=== PATIENT | male | born 1945 | race Caucasian/White ===

== ENCOUNTER 2017-10-11 12:52 | Emergency (ER) | payer MEDICARE ==
--- OUTSIDE RECORDS SUMMARY | 2017-10-11 13:01 | XMS REPORT ---
:1945 External Reference #:[id number] Author Organization [facility] Address [address] [place] [address] Phone [phone] Care Team Providers Name Role Phone William Jason III, MD Primary Care Physician Unavailable Payers Type Date Identification Numbers Payment Provider Subscriber Commercial Policy Number: [id number] [employer] Chago Perez PayID: [id number] [address] [place] [address] Problems Date Description Provider Status Onset: 01/06/2011 Type 2 diabetes mellitus William Jason M.D. Active Onset: 01/06/2011 Benign essential hypertension William Jason M.D. Active Onset: 02/23/2011 Sleep apnea William Jason M.D. Active Onset: 06/24/2011 Mixed hyperlipidemia William Jason M.D. Active Onset: 02/19/2015 Essential hypertension William Jason M.D. Active Onset: 02/19/2015 Sleep apnea William Jason M.D. Active Onset: 06/02/2016 Morbid obesity Lisa Bose MD Active Onset: 06/02/2016 Disorder of lung Lisa Bose MD Active Family History Date Family Member(s) Problem(s) Comments Father DM Mother at age 97 Siblings 6 3 Sisters 3 Brothers - one brother from Alzheimer's Social History Type Date Description Comments Marital Status Lives With Family Occupation Retired Cigarette Use Former Cigarette Smoker quit age 24; max 2-2.5 ppd x 17 years Cigarette Use Quit in 1972 ETOH Use Not currently Smoking Patient is a former smoker Recreational Drug Use Denies Drug Use Daily Caffeine Consumes on average 2 cups of regular coffee per day Exercise Type/Frequency Does not exercise Allergies, Adverse Reactions, Alerts Date Description Reaction Status Severity Comments 04/25/2007 Vasotec active 02/23/2011 Latex active rash 06/02/2016 Invokana active Medications Medication Date Status Form Strength Qnty SIG Indications Ordering Provider Aspirin 09/11 Active Tablets 81mg 90tab [address] allison every day Dayan Bone M.D.,FACP Bydureon Bcise 09/08 Active Auij 2mg/0.85M 3.400 1 injection William Castillo L ml weekly Ehsan Jason Relion 10/15 Active Strips 50uni test weekly William Castillo Confirm/Micro Test ts or as Ezequiel Jason directed Ehsan Metformin HCL 10/23 Active Tablets 500mg 360ta 2 by mouth William Castillo bs twice a day Ehsan aJson Norvasc 04/25 Active Tablets 10mg 90tab 1 by mouth William Castillo s every day Ehsan Jason Multi-Day Vitamins 01/19 Active Tablets 1 PO qd William Castillo Ehsan Jason Cozaar Active Tablets 100mg 90tab 1 by mouth William Castillo / s every day Ehsan Jason Apruvia 06/05 Hx Tablets 100mg 90tab 1 by mouth William Castillo s every day Sunny Jason M.D. 09/27 Januvia 06/01 Hx Tablets 1 by mouth every day - 06/05 Levaquin 04/02 Hx Tablets 750mg 10tab 1 tablet by William Castillo /2015 s mouth every Casie, - day x 10 M.DMike Invokana 02/24 Hx Tablets 100mg 90tab 1 by mouth E11.9 William Castillo s every day Sunny Jason M.D. 04/08 Simvastatin 08/19 Hx Tablets 5mg 30tab Not Taking E78.2 William Castillo /2015 s Sunny Jason M.D. 05/27 Ra Pen [place] 31G 08/04 Hx 5mm 100un use with E11.9 William Castillo X its Victoza pen Casie, - M.D. 08/24 Tamiflu 06/20 Hx Capsules 75mg 10cap twice a day J10.89 [place] s Ezekiel - , M.D. 08/19 Azithromycin Hx Tablets 250mg 6tabs take 2 tab J20.9 Renetta /2015 on day 1 [place], - then 1 tab M.D. 08/19 daily x days Victoza 07/13 Hx Solution 18mg/3ML 9ml inject 0.6 E11.9 William Talley. Pen-Injec milligram Casie, - t subcutaneou M.D. 02/24 sly daily /2015 for the first week, then increase to 1.2mg daily (patient states he takes 0.9) Ra Pen [place] 07/13 Hx Misc 31G X 5 100un use with E11.9 William Castillo /2014 mm its Victoza pen Casie, - M.D. 08/04 Ketoconazole 07/02 Hx Cream 2% 15gm apply to 607.81 [place] /2015 affected Aman, [employer] - area twice 07/13 daily /2014 Androderm 01/24 Hx Patches 4mg/24HR 30uni apply one 257.2 William E. 24HR ts patch daily Casie, - in the M.D. 07/02 evening. rotate patch locations Atorvastatin 01/08 Hx Tablets 20mg 90tab take 1 272.2 William E. Calcium /2013 s tablet at [place], - bedtime M.D. 10/15 Mometasone Furoate 07/07 Hx Cream 0.1% 45gm apply twice 709.9 William E. /2013 a day for Casie, - 2-3 weeks M.D. 01/24 Wrist Brace 05/12 Hx Misc 1unit left side; 719.44 William E. Ultra-Lite Carpal /2013 s use at [place], Tunnel/One Size - night and M.D. 07/13 prn /2014 Pravastatin Sodium 06/23 Hx Tablets 20mg 90tab 1 tablet by William Castillo s mouth once Casie, - daily at M.D. 10/08 bedtime Norvasc 04/25 Hx Tablets 5mg 180ta 1 PO bid William Mike Sunny Escobar M.D. 04/25 Norvasc Hx Tablets 5mg 90tab 1 po qd William E. / Sunny Shelton M.D. 04/25 Hydrochlorothiazid Hx Tablets 25mg 90tab Not Taking William E. e / Sunny Shelton M.D. 05/27 Glucosamine 1500 Hx Tablet 1 tablet po Unknown Complex W/Vitamin bid D - 07/02 Immunizations CPT Code Status Date Vaccine Lot # [id number] Given 08/25/2017 Pneumonia Vaccine [id number] 45612 Given 02/24/2017 Fluzone High Dose 87138 Given 02/25/2016 Influenza Virus Vaccine, Quadrivalent, Split [id number] Virus, [place] Use 45452 Given 02/19/2015 Influenza Virus Vaccine, Quadrivalent, Split, [id number] Preservative Free 51324 Given 07/13/2014 Tdap - Tetanus/Diptheria/Acellular Pertussis [id number] 52145 Given 07/13/2014 Pneumococcal Conjugate Vaccine 13 Valent For [id number] Intramuscular Use 07914 Given 01/08/2014 Influenza Virus Vaccine, Quadrivalent, Split, [id number] Preservative Free 40506 Given 05/06/2009 Influenza Virus Vaccine, Pandemic Formulation [id number] 73923 Given 05/06/2009 Administration Swine Flu Shot 80780 Given 11/22/2007 Pneumonia Vaccine 79140 Given 11/22/2007 Pneumonia Vaccine [id number] 85788 Given 06/19/2004 Td (History By Patient) Vital Signs Date Vital Result Comment 09/27/2017 Height 67.1 inches 5'7.10" Weight 286.38 lb Heart Rate 81 /min BP Systolic Sitting 138 mmHg 132/76 pt's machine BP Diastolic Sitting 86 mmHg 132/76 pt's machine O2 % BldC Oximetry 97 % BMI (Body Mass Index) 44.7 kg/m2 08/25/2017 Height 67.1 inches 5'7.10" Weight 293.00 lb Heart Rate 79 /min BP Systolic Sitting 150 mmHg BP Diastolic Sitting 92 mmHg O2 % BldC Oximetry 97 % BMI (Body Mass Index) 45.7 kg/m2 02/23/2017 Height 67 inches 5'7" Weight 285.00 lb Heart Rate 79 /min BP Systolic Sitting 128 mmHg BP Diastolic Sitting 74 mmHg Body Temperature 98.3 F O2 % BldC Oximetry 96 % BMI (Body Mass Index) 44.6 kg/m2 12/09/2016 Height 67 inches 5'7" Weight 274.00 lb w/ shoes Heart Rate 80 /min reg BP Systolic Sitting 124 mmHg Rue, lg cuff BP Diastolic Sitting 80 mmHg Rue, lg cuff Respiratory Rate 16 /min O2 % BldC Oximetry 95 % on Ra BMI (Body Mass Index) 42.9 kg/m2 08/25/2016 Height 67 inches 5'7" Weight 278.00 lb Heart Rate 74 /min BP Systolic 138 mmHg BP Diastolic 80 mmHg Body Temperature 97.9 F O2 % BldC Oximetry 97 % BMI (Body Mass Index) 43.5 kg/m2 06/02/2016 Height 67 inches 5'7" Weight 285.00 lb Heart Rate 81 /min BP Systolic Sitting 156 mmHg BP Diastolic Sitting 84 mmHg Respiratory Rate 16 /min O2 % BldC Oximetry 98 % BMI (Body Mass Index) 44.6 kg/m2 Neck Circumference in inches 20 05/27/2016 Weight 289.00 lb Heart Rate 84 /min BP Systolic Sitting 152 mmHg BP Diastolic Sitting 88 mmHg Respiratory Rate 14 /min Body Temperature 98.0 F O2 % BldC Oximetry 97 % 04/02/2016 Height 66.5 inches 5'6.50" Weight 283.00 lb Heart Rate 95 /min BP Systolic 130 mmHg BP Diastolic 90 mmHg Body Temperature 102.0 F O2 % BldC Oximetry 95 % BMI (Body Mass Index) 45.0 kg/m2 02/25/2016 Height 66.5 inches 5'6.50" Weight 291.38 lb Heart Rate 80 /min BP Systolic Sitting 134 mmHg BP Diastolic Sitting 88 mmHg BMI (Body Mass Index) 46.3 kg/m2 11/25/2015 Weight 291.00 lb Heart Rate 82 /min BP Systolic Sitting 138 mmHg BP Diastolic Sitting 86 mmHg Body Temperature 98.2 F O2 % BldC Oximetry 97 % 08/20/2015 Weight 292.00 lb Heart Rate 87 /min BP Systolic Sitting 137 mmHg BP Diastolic Sitting 76 mmHg Body Temperature 98.3 F O2 % BldC Oximetry 97 % 06/21/2015 Heart Rate 86 /min BP Systolic Sitting 130 mmHg BP Diastolic Sitting 84 mmHg Respiratory Rate 17 /min Body Temperature 97.7 F O2 % BldC Oximetry 96 % 06/17/2015 Weight 286.00 lb Heart Rate 83 /min BP Systolic Sitting 120 mmHg BP Diastolic Sitting 74 mmHg Respiratory Rate 18 /min Body Temperature 98.1 F O2 % BldC Oximetry 95 % 06/05/2015 Weight 284.00 lb Heart Rate 88 /min BP Systolic Sitting 138 mmHg BP Diastolic Sitting 82 mmHg Body Temperature 98.8 F O2 % BldC Oximetry 97 % 02/19/2015 Height 67 inches 5'7" Weight 292.00 lb Heart Rate 82 /min BP Systolic Sitting 131 mmHg BP Diastolic Sitting 79 mmHg Body Temperature 98.2 F BMI (Body Mass Index) 45.7 kg/m2 10/15/2014 Height 68 inches 5'8" Weight 288.50 lb Heart Rate 79 /min BP Systolic Sitting 122 mmHg BP Diastolic Sitting 64 mmHg O2 % BldC Oximetry 96 % BMI (Body Mass Index) 43.9 kg/m2 07/13/2014 Height 68 inches 5'8" Weight 289.25 lb Heart Rate 81 /min BP Systolic Sitting 128 mmHg BP Diastolic Sitting 74 mmHg O2 % BldC Oximetry 95 % BMI (Body Mass Index) 44.0 kg/m2 07/02/2014 Height 68 inches 5'8" Weight 294.00 lb Heart Rate 78 /min BP Systolic 148 mmHg BP Diastolic 91 mmHg Body Temperature 97.9 F BMI (Body Mass Index) 44.7 kg/m2 01/24/2014 Weight 288.25 lb Heart Rate 84 /min BP Systolic Sitting 128 mmHg BP Diastolic Sitting 72 mmHg Body Temperature 98.0 F 01/08/2014 Height 67.5 inches 5'7.50" Weight 294.00 lb Heart Rate 64 /min BP Systolic Sitting 126 mmHg BP Diastolic Sitting 78 mmHg BMI (Body Mass Index) 45.4 kg/m2 07/07/2013 Height 67.5 inches 5'7.50" Weight 288.00 lb Heart Rate 72 /min BP Systolic Sitting 124 mmHg BP Diastolic Sitting 94 mmHg Body Temperature 97.9 F BMI (Body Mass Index) 44.4 kg/m2 05/12/2013 Height 67.5 inches 5'7.50" Weight 283.50 lb Heart Rate 64 /min BP Systolic Sitting 112 mmHg BP Diastolic Sitting 70 mmHg BMI (Body Mass Index) 43.7 kg/m2 12/27/2012 Height 67.5 inches 5'7.50" Weight 279.25 lb Heart Rate 72 /min BP Systolic Sitting 148 mmHg BP Diastolic Sitting 84 mmHg BMI (Body Mass Index) 43.1 kg/m2 08/15/2012 Height 67.50 inches 5'7.50" Weight 285.00 lb Heart Rate 76 /min BP Systolic Sitting 120 mmHg BP Diastolic Sitting 82 mmHg BMI (Body Mass Index) 44.0 kg/m2 06/23/2012 Height 68.25 inches 5'8.25" Weight 288.00 lb Heart Rate 76 /min BP Systolic Sitting 146 mmHg BP Diastolic Sitting 92 mmHg BMI (Body Mass Index) 43.5 kg/m2 12/25/2011 Height 68.25 inches 5'8.25" Weight 282.00 lb Heart Rate 72 /min BP Systolic Sitting 150 mmHg BP Diastolic Sitting 88 mmHg BMI (Body Mass Index) 42.6 kg/m2 06/24/2011 Height 68.25 inches 5'8.25" Weight 286.00 lb Heart Rate 80 /min BP Systolic Sitting 138 mmHg BP Diastolic Sitting 86 mmHg BMI (Body Mass Index) 43.2 kg/m2 02/23/2011 Height 68 inches 5'8" Weight 281.25 lb Heart Rate 80 /min BP Systolic Sitting 130 mmHg BP Diastolic Sitting 80 mmHg BMI (Body Mass Index) 42.8 kg/m2 11/10/2010 Weight 290.00 lb Heart Rate 72 /min BP Systolic Sitting 112 mmHg BP Diastolic Sitting 82 mmHg 10/23/2010 Weight 296.00 lb Heart Rate 72 /min BP Systolic Sitting 120 mmHg BP Diastolic Sitting 84 mmHg 04/24/2010 Weight 285.00 lb Heart Rate 84 /min BP Systolic Sitting 122 mmHg BP Diastolic Sitting 84 mmHg 01/10/2010 Weight 286.00 lb Heart Rate 86 /min BP Systolic Sitting 136 mmHg BP Diastolic Sitting 82 mmHg 10/08/2009 Height 68 inches 5'8" Weight 288.00 lb Heart Rate 80 /min BP Systolic Sitting 110 mmHg BP Diastolic Sitting 70 mmHg BMI (Body Mass Index) 43.8 kg/m2 05/08/2009 Weight 179.00 lb Heart Rate 80 /min BP Systolic Sitting 124 mmHg BP Diastolic Sitting 80 mmHg 02/13/2009 Height 68 inches 5'8" Weight 274.00 lb Heart Rate 80 /min BP Systolic Sitting 114 mmHg BP Diastolic Sitting 82 mmHg BMI (Body Mass Index) 41.7 kg/m2 08/16/2008 Height 68 inches 5'8" Weight 283.00 lb Heart Rate 76 /min BMI (Body Mass Index) 43.0 kg/m2 11/22/2007 Height 68 inches 5'8" Weight 281.00 lb up 6# Heart Rate 84 /min BP Systolic Sitting 142 mmHg BP Diastolic Sitting 90 mmHg BMI (Body Mass Index) 42.7 kg/m2 09/21/2007 Height 68 inches 5'8" Weight 275.00 lb Heart Rate 88 /min BP Systolic Sitting 124 mmHg BP Diastolic Sitting 86 mmHg O2 % BldC Oximetry 94 % BMI (Body Mass Index) 41.8 kg/m2 05/24/2007 Height 68 inches 5'8" Weight 278.00 lb lost 8# since last visit Heart Rate 80 /min BP Systolic Sitting 142 mmHg BP Diastolic Sitting 100 mmHg BMI (Body Mass Index) 42.3 kg/m2 04/25/2007 Height 68 inches 5'8" Weight 286.00 lb Heart Rate 80 /min BP Systolic Sitting 142 mmHg BP Diastolic Sitting 100 mmHg BMI (Body Mass Index) 43.5 kg/m2 Results Test Date Test Result H/L Range Note Basic Metabolic Panel 09/23/2017 Sodium 142 mmol/L 139-145 Potassium 3.8 mmol/L 3.5-5.0 Chloride 106 mmol/L 101-111 Co2 Carbon Dioxide 28 mmol/L 22-32 Anion Gap 8 mmol/L 2-11 Glucose 133 mg/dL High 70-100 Blood Urea Nitrogen 13 mg/dL 6-24 Creatinine 0.81 mg/dL 0.67-1.17 BUN/Creatinine Ratio 16.0 8-20 Calcium 8.9 mg/dL 8.6-10.3 Egfr Non- 93.4 >60 Egfr 120.1 >60 1 Comp Metabolic Panel 08/23/2017 Sodium 141 mmol/L 139-145 Potassium 4.0 mmol/L 3.5-5.0 Chloride 105 mmol/L 101-111 Co2 Carbon Dioxide 29 mmol/L 22-32 Anion Gap 7 mmol/L 2-11 Glucose 173 mg/dL High 70-100 Blood Urea Nitrogen 15 mg/dL 6-24 Creatinine 0.83 mg/dL 0.67-1.17 BUN/Creatinine Ratio 18.1 8-20 Calcium 8.9 mg/dL 8.6-10.3 Total Protein 6.4 g/dL 6.4-8.9 Albumin 3.9 g/dL 3.2-5.2 Globulin 2.5 g/dL 2-4 Albumin/Globulin Ratio 1.6 1-3 Total Bilirubin 0.60 mg/dL 0.2-1.0 Alkaline Phosphatase 74 U/L 34-104 Alt 23 U/L 7-52 Ast 15 U/L 13-39 Egfr Non- 91.1 >60 Egfr 117.1 >60 2 Lipid Profile (Trig/Chol/HDL) 08/23/2017 Triglycerides 236 mg/dL 3 Cholesterol 185 mg/dL 4 HDL Cholesterol 36.2 mg/dL 5 LDL Cholesterol 102 mg/dL 6 Urine Microalbumin Random 08/23/2017 Ur Microalbumin (mg/L) 23.3 mg/L Urine Creatinine 176.48 mg/dL Urine Microalbumin/Creatinine 13.2 ug/mg <31 Laboratory test finding 02/23/2017 Hemoglobin A1c 6.8 5-7 Comp Metabolic Panel 08/26/2016 Sodium 139 mmol/L 133-145 Potassium 4.0 mmol/L 3.5-5.0 Chloride 105 mmol/L 101-111 Co2 Carbon Dioxide 29 mmol/L 22-32 Anion Gap 5 mmol/L 2-11 Glucose 117 mg/dL High 70-100 Blood Urea Nitrogen 14 mg/dL 6-24 Creatinine 0.81 mg/dL 0.67-1.17 BUN/Creatinine Ratio 17.3 8-20 Calcium 8.9 mg/dL 8.6-10.3 Total Protein 6.3 g/dL Low 6.4-8.9 Albumin 3.7 g/dL 3.2-5.2 Globulin 2.6 g/dL 2-4 Albumin/Globulin Ratio 1.4 1-3 Total Bilirubin 0.80 mg/dL 0.2-1.0 Alkaline Phosphatase 68 U/L 34-104 Alt 13 U/L 7-52 Ast 13 U/L 13-39 Egfr Non- 93.9 >60 Egfr 120.8 >60 7 Lipid Profile (Trig/Chol/HDL) 08/26/2016 Triglycerides 192 mg/dL 8 Cholesterol 172 mg/dL 9 HDL Cholesterol 31.5 mg/dL 10 LDL Cholesterol 102 mg/dL 11 Urine Microalbumin Random 08/25/2016 Urine Creatinine 125.74 mg/dL 12 Ur Microalbumin (mg/L) < 15.0 mg/L 12 Urine Microalbumin/Creatinine TNP ug/mg <31 12, 13 Laboratory test finding 08/25/2016 Hemoglobin A1c 6.5 5-7 Laboratory test finding 05/27/2016 Hemoglobin A1c 8.0 High 5-7 Rapid Influenza A & B 04/02/2016 Influenza A Molecular NEGATIVE Negative 14 Molecular Influenza B Molecular NEGATIVE Negative Laboratory test finding 04/02/2016 Influenza A & B SEE RESULT BELOW 15 Request Urine Culture And 04/02/2016 Urine Culture SEE RESULT BELOW 16 Sensitivities Ua Routine 04/02/2016 Ua Specific [place] 1.101 Ua PH 5 Ua Color yellow Ua Appera cloudy Ua WBC neg Ua Protein neg Ua Glucose 1000 Ua Ketones small + Ua Bilirubin neg Ua Urobilinogen norm Ua Nitrite neg Ua Occult Blood trace Laboratory test 02/18/2016 Hemoglobin A1c (Glyco 7.8 % High Less than 6.0 17 finding HGB) Lipid Profile 02/18/2016 Triglycerides 325 mg/dL 18 (Trig/Chol/HDL) Cholesterol 183 mg/dL 19 HDL Cholesterol 32.2 mg/dL 20 LDL Cholesterol 86 mg/dL 21 Urine Microalbumin Random 08/20/2015 Ur Microalbumin (mg/L) 7.0 mg/L Urine Creatinine 132.72 mg/dL Urine Microalbumin/Creatinine 5.2 ug/mg <31 Laboratory test finding 08/20/2015 Hemoglobin A1c 7.2 High 5-7 CBC Auto Diff 06/21/2015 White Blood Count 6.5 10^3/uL 3.5-10.8 Red Blood Count 5.73 10^6/uL High 4.0-5.4 Hemoglobin 16.3 g/dL 14.0-18.0 Hematocrit 49 % 42-52 Mean Corpuscular Volume 86 fL 80-94 Mean Corpuscular Hemoglobin 28 pg 27-31 Mean Corpuscular HGB Conc 33 g/dL 31-36 Red Cell Distribution Width 13 % 10.5-15 Platelet Count 218 10^3/uL 150-450 Mean Platelet Volume 8 um3 7.4-10.4 Abs Neutrophils 4.5 10^3/uL 1.5-7.7 Abs Lymphocytes 1.2 10^3/uL 1.0-4.8 Abs Monocytes 0.5 10^3/uL 0-0.8 Abs Eosinophils 0.3 10^3/uL 0-0.6 Abs Basophils 0.1 10^3/uL 0-0.2 Abs Nucleated RBC 0 10^3/uL Granulocyte % 68.1 % 38-83 Lymphocyte % 17.7 % Low 25-47 Monocyte % 8.0 % 1-9 Eosinophil % 5.1 % 0-6 Basophil % 1.1 % 0-2 Nucleated Red Blood Cells % 0 Comp Metabolic Panel 06/21/2015 Sodium 137 mmol/L 133-145 Potassium 3.6 mmol/L 3.5-5.0 Chloride 98 mmol/L Low 101-111 Co2 Carbon Dioxide 30 mmol/L 22-32 Anion Gap 9 mmol/L 2-11 Glucose 225 mg/dL High 70-100 Blood Urea Nitrogen 11 mg/dL 6-24 Creatinine 0.77 mg/dL 0.67-1.17 BUN/Creatinine Ratio 14.3 8-20 Calcium 9.2 mg/dL 8.6-10.3 Total Protein 6.8 g/dL 6.4-8.9 Albumin 3.9 g/dL 3.2-5.2 Globulin 2.9 g/dL 2-4 Albumin/Globulin Ratio 1.3 1-3 Total Bilirubin 0.80 mg/dL 0.2-1.0 Alkaline Phosphatase 69 U/L 34-104 Alt 27 U/L 7-52 Ast 17 U/L 13-39 Egfr Non- 99.9 >60 Egfr 128.4 >60 22 Laboratory test finding 06/05/2015 PSA Screening 3.557 ng/mL 0-4.000 23 CBC Auto Diff 06/03/2015 White Blood Count 7.1 10^3/uL 3.5-10.8 Red Blood Count 5.40 10^6/uL 4.0-5.4 Hemoglobin 15.5 g/dL 14.0-18.0 Hematocrit 46 % 42-52 Mean Corpuscular Volume 84 fL 80-94 Mean Corpuscular Hemoglobin 29 pg 27-31 Mean Corpuscular HGB Conc 34 g/dL 31-36 Red Cell Distribution Width 13 % 10.5-15 Platelet Count 202 10^3/uL 150-450 Mean Platelet Volume 8 um3 7.4-10.4 Abs Neutrophils 5.0 10^3/uL 1.5-7.7 Abs Lymphocytes 1.2 10^3/uL 1.0-4.8 Abs Monocytes 0.6 10^3/uL 0-0.8 Abs Eosinophils 0.3 10^3/uL 0-0.6 Abs Basophils 0.1 10^3/uL 0-0.2 Abs Nucleated RBC 0.01 10^3/uL Granulocyte % 70.2 % 38-83 Lymphocyte % 16.3 % Low 25-47 Monocyte % 8.1 % 1-9 Eosinophil % 4.5 % 0-6 Basophil % 0.9 % 0-2 Nucleated Red Blood Cells % 0.1 Urinalysis Profile 06/03/2015 Urine Color Yellow Urine Appearance Clear Urine Specific [place] 1.013 1.010-1.030 Urine pH 7.0 5-9 Urine Urobilinogen Negative Negative Urine Ketones Trace Negative Urine Protein Negative Negative Urine Leukocytes Negative Negative Urine Blood Negative Negative Urine Nitrite Negative Negative Urine Bilirubin Negative Negative Urine Glucose 3+(>=500 mg/dL) Negative Laboratory test finding 06/03/2015 Lactic Acid 1.7 mmol/L 0.5-2.0 24 Comp Metabolic Panel 06/03/2015 Sodium 136 mmol/L 133-145 Chloride 99 mmol/L Low 101-111 Co2 Carbon Dioxide 28 mmol/L 22-32 Glucose 219 mg/dL High 70-100 Blood Urea Nitrogen 15 mg/dL 6-24 Creatinine 0.79 mg/dL 0.67-1.17 BUN/Creatinine Ratio 19.0 8-20 Calcium 8.9 mg/dL 8.6-10.3 Total Protein 7.1 g/dL 6.4-8.9 Albumin 3.9 g/dL 3.2-5.2 Globulin 3.2 g/dL 2-4 Albumin/Globulin Ratio 1.2 1-3 Total Bilirubin 0.60 mg/dL 0.2-1.0 Alkaline Phosphatase 76 U/L 34-104 Alt 26 U/L 7-52 Egfr Non- 97.0 >60 Egfr 124.7 >60 25 Potassium 3.7 mmol/L 3.5-5.0 Anion Gap 9 mmol/L 2-11 Ast 21 U/L 13-39 Laboratory test finding 06/03/2015 Lipase 21 U/L 11.0-82.0 C Reactive Protein 8.75 mg/L High < 5.00 26 Laboratory test finding 02/19/2015 Hemoglobin A1c 6.8 5-7 Laboratory test finding 10/15/2014 Hemoglobin A1c 6.6 5-7 Comp Metabolic Panel 08/09/2014 Sodium 141 mmol/L 133-145 27 Potassium 3.6 mmol/L 3.5-5.0 27 Chloride 104 mmol/L 101-111 27 Co2 Carbon Dioxide 29 mmol/L 22-32 27 Anion Gap 8 mmol/L 2-11 27 Glucose 116 mg/dL High 70-100 27 Blood Urea Nitrogen 12 mg/dL 6-24 27 Creatinine 0.72 mg/dL 0.67-1.17 27 BUN/Creatinine Ratio 16.7 8-20 27 Calcium 8.8 mg/dL 8.6-10.3 27 Total Protein 6.5 g/dL 6.4-8.9 27 Albumin 4.1 g/dL 3.2-5.2 27 Globulin 2.4 g/dL 2-4 27 Albumin/Globulin Ratio 1.7 1-3 27 Total Bilirubin 0.70 mg/dL 0.2-1.0 27 Alkaline Phosphatase 65 U/L 34-104 27 Alt 23 U/L 7-52 27 Ast 16 U/L 13-39 27 Egfr Non- 108.2 >60 27 Egfr 139.2 >60 27, 28 Urinalysis Profile 07/02/2014 Urine Color Yellow Urine Appearance Clear Urine Specific [place] 1.016 1.010-1.030 Urine pH 6.0 5-9 Urine Urobilinogen Negative Negative Urine Ketones Negative Negative Urine Protein Negative Negative Urine Leukocytes Negative Negative Urine Blood Negative Negative Urine Nitrite Negative Negative Urine Bilirubin Negative Negative Urine Glucose 3+(>=500 mg/dL) Negative Urine Culture And Sensitivities 07/02/2014 Urine Culture (SEE NOTE) 29 Ua Routine 07/02/2014 Ua Specific [place] 1.010 Ua PH 7 Ua Color yellow Ua Appera cloudy Ua WBC negative Ua Protein trace Ua Glucose 250+ Ua Ketones trace Ua Bilirubin small Ua Urobilinogen normal Ua Nitrite negative Ua Occult Blood negative Testosterone Free & Total 07/02/2014 Free Testosterone ng/dl 7.6 ng/dL 9- 30 30, 31 Testosterone 147 ng/dL 240-950 30, 32 Lipid Profile (Trig/Chol/HDL) 07/02/2014 Triglycerides 261 mg/dL 30, 33 Cholesterol 148 mg/dL 30, 34 HDL Cholesterol 38.2 mg/dL 30, 35 LDL Cholesterol 58 mg/dL 30, 36 Comp Metabolic Panel 07/02/2014 Sodium 137 mmol/L 133-145 30 Potassium 3.6 mmol/L 3.5-5.0 30 Chloride 101 mmol/L 101-111 30 Co2 Carbon Dioxide 28 mmol/L 22-32 30 Anion Gap 8 mmol/L 2-11 30 Glucose 218 mg/dL High 70-100 30 Blood Urea Nitrogen 11 mg/dL 6-24 30 Creatinine 0.71 mg/dL 0.67-1.17 30 BUN/Creatinine Ratio 15.5 8-20 30 Calcium 9.1 mg/dL 8.6-10.3 30 Total Protein 6.6 g/dL 6.4-8.9 30 Albumin 3.9 g/dL 3.2-5.2 30 Globulin 2.7 g/dL 2-4 30 Albumin/Globulin Ratio 1.4 1-3 30 Total Bilirubin 0.90 mg/dL 0.2-1.0 30 Alkaline Phosphatase 72 U/L 34-104 30 Alt 32 U/L 7-52 30 Ast 19 U/L 13-39 30 Egfr Non- 110.0 >60 30 Egfr 141.5 >60 30, 37 Laboratory test 07/02/2014 Hemoglobin A1c 9.2 % High Less than 30, 38 finding 6.0 Urine Microalbumin 07/02/2014 Ur Microalbumin 18.0 mg/L 30 Random (mg/L) Urine Creatinine 108.67 mg/dL 30 Urine Microalbumin/Creatinine 16.5 Less Than 31 30 Laboratory test 01/24/2014 PSA Screening 2.602 ng/mL 0-4.000 39 finding Laboratory test 01/08/2014 Hepatitis C Antibody Nonreactive Nonreactive finding Testosterone Free & 01/08/2014 Free Testosterone 5.2 ng/dL 9-30 40 Total ng/dl Testosterone 164 ng/dL 240-950 41 Laboratory test finding 01/08/2014 Hemoglobin A1c 7.5 High 5-7 Urine Microalbumin Random 07/10/2013 Ur Microalbumin (mg/L) 7.0 mg/dL < 30 42 Urine Creatinine 106.46 mg/dL Urine Microalbumin/Creatinine 6.5 Less Than 31 Lipid Profile (Trig/Chol/HDL) 07/10/2013 Triglycerides 230 mg/dL 43 Cholesterol 152 mg/dL 44 HDL Cholesterol 35.9 mg/dL 45 LDL Cholesterol 70 mg/dL 46 Comp Metabolic Panel 07/10/2013 Sodium 140 mmol/L 133-145 Potassium 4.0 mmol/L 3.7-5.6 Chloride 104 mmol/L 101-111 Co2 Carbon Dioxide 30 mmol/L 22-32 Anion Gap 6 mmol/L 2-11 Glucose 151 mg/dL High 70-100 Blood Urea Nitrogen 14 mg/dL 6-24 Creatinine 0.71 mg/dL 0.67-1.17 BUN/Creatinine Ratio 19.7 8-20 Calcium 8.8 mg/dL 8.6-10.3 Total Protein 6.5 g/dL 6.4-8.9 Albumin 4.0 g/dL 3.2-5.2 Globulin 2.5 g/dL 2-4 Albumin/Globulin Ratio 1.6 1-3 Total Bilirubin 0.60 mg/dL 0.2-1.0 Alkaline Phosphatase 66 U/L 34-104 Alt 20 U/L 7-52 Ast 14 U/L 13-39 Egfr Non- 110.3 >60 Egfr 141.9 >60 47 Laboratory test 07/07/2013 Hemoglobin A1c 6.8 5-7 finding Laboratory test 12/23/2012 Hemoglobin A1c 6.8 % High Less than 6.0 48 finding CBC Auto Diff 08/16/2012 White Blood Count 6.7 10^3/uL 4.8-10.8 Red Blood Count 5.05 10^6/uL 4.0-5.4 Hemoglobin 14.9 g/dL 14.0-18.0 Hematocrit 43 % 42-52 Mean Corpuscular Volume 86 fL 80-94 Mean Corpuscular Hemoglobin 30 pg 27-31 Mean Corpuscular HGB Conc 35 g/dL 31-36 Red Cell Distribution Width 13 % 10.5-15 Platelet Count 191 10^3/uL 150-450 Mean Platelet Volume 8 um3 7.4-10.4 Abs Neutrophils 3.9 10^3/uL 1.5-7.7 Abs Lymphocytes 1.6 10^3/uL 1.0-4.8 Abs Monocytes 0.5 10^3/uL 0-0.8 Abs Eosinophils 0.7 10^3/uL High 0-0.6 Abs Basophils 0.1 10^3/uL 0-0.2 Abs Nucleated RBC 0.01 10^3/uL Granulocyte % 57.5 % 38-83 Lymphocyte % 23.9 % Low 25-47 Monocyte % 7.6 % 1-9 Eosinophil % 10.1 % High 0-6 Basophil % 0.9 % 0-2 Nucleated Red Blood Cells % 0.1 Basic Metabolic Panel 08/16/2012 Sodium 139 mmol/L 133-145 Potassium 3.6 mmol/L 3.5-5.0 Chloride 101 mmol/L 101-111 Co2 Carbon Dioxide 29.0 mmol/L 22-32 Anion Gap 9.0 mmol/L 2-11 Glucose 158 mg/dL High 70-100 Blood Urea Nitrogen 13 mg/dL 6-24 Creatinine 0.80 mg/dL 0.50-1.40 BUN/Creatinine Ratio 16.3 8-20 Calcium 9.1 mg/dL 8.1-9.9 Egfr Non- 96.4 >60 Egfr 124.0 >60 49 Surgical Pathology 08/02/2012 S RUN DATE: 08/03/ <SEE 50 NOTE> Lipid Profile 06/20/2012 Triglycerides 193 mg/dL 40-200 (Trig/Chol/HDL) Cholesterol 160 mg/dL Less than 200 HDL Cholesterol 35 mg/dL Low 40-60 51 Cholesterol/HDL Ratio 4.6 Average High 1-4.44 LDL Cholesterol 86.4 mg/dL Less Than 100 52 Comp Metabolic Panel 06/20/2012 Sodium 140 mmol/L 133-145 Potassium 4.1 mmol/L 3.5-5.0 Chloride 105 mmol/L 101-111 Co2 Carbon Dioxide 29.0 mmol/L 22-32 Anion Gap 6.0 mmol/L 2-11 Glucose 143 mg/dL High 70-100 Blood Urea Nitrogen 12 mg/dL 6-24 Creatinine 0.80 mg/dL 0.50-1.40 BUN/Creatinine Ratio 15.0 8-20 Calcium 8.8 mg/dL 8.1-9.9 Total Protein 6.1 g/dL Low 6.2-8.1 Albumin 3.5 g/dL 3.2-5.2 Globulin 2.6 g/dL 2-4 Albumin/Globulin Ratio 1.3 1-3 Total Bilirubin 0.8 mg/dL 0.4-1.5 Alkaline Phosphatase 66 U/L 30-110 Alt 24 U/L 14-54 Ast 18 U/L 12-42 Egfr Non- 96.4 >60 Egfr 124.0 >60 53 Laboratory test finding 06/20/2012 Hemoglobin A1c 6.5 % High Less than 6.0 54 Laboratory test finding 12/25/2011 Hemoglobin A1c 7.0 5-7 Lipid Profile 09/03/2011 Triglyceride 147 mg/dL 40-200 (Trig/Chol/HDL) Cholesterol 163 mg/dL Less Than 200 55 High Density Lipoprotein 33 mg/dL Low 40-60 56 Cholesterol/HDL Ratio 4.94 AVERAGE 1-4.97 Low Density Lipoprotein 101 mg/dL High Less Than 100 57 Laboratory test finding 09/03/2011 Alt (SGPT) 21 U/L 17-63 Ast (Sgot) 17 U/L 12-42 Urine Microalbumin Random 09/03/2011 Microalbumin (MG/L) 11.0 mg/L Urine Creatinine 188.4 mg/dL Lazaro Alb/Creatinine Ratio 5.8 UG/MG Less Than 30 58 CBC Auto Diff 06/22/2011 White Blood Count 5.2 CUMM 4.8-10.8 Red Cell Count 4.96 CUMM 4.6-6.2 Hemoglobin 14.9 g/dL 14.0-18.0 Hematocrit 43 % 42-52 Mean Corpuscular Volume 86 um3 80-94 Mean Corpuscular Hemoglob 30 pg 27-31 Mean Corpuscular HGB Cone 35 g/dL 32-36 Redcell Distribution WDTH 13 % 10.5-15 Platelet Count 173 CUMM 150-450 Mean Platelet Volume 8.4 um3 7.4-10.4 Gran % 61.6 % 38-83 Lymph % 23.3 % Low 25-47 Mononuclear % 10.7 % High 1-9 Eosinophil % 3.8 % 0-6 Basophil % 0.6 % 0-2 Abs Lymphs 1.2 1.0-4.8 Abs Mononuclear 0.6 0-0.8 Absolute Neutrophil Count 3.2 1.5-7.7 Abs Eosinophils 0.2 0-0.6 Abs Basophils 0 0-0.2 Comp Metabolic Panel 06/22/2011 Sodium 140 mmol/L 135-145 Potassium 3.7 mmol/L 3.5-5.0 Chloride 107 mmol/L 101-111 Co2 (Carbon Dioxide) 29.0 mmol/L 22-32 Anion Gap 4.0 mmol/L 2-11 59 Glucose 144 mg/dL High 70-100 BUN 13 mg/dL 6-24 Creatinine 0.8 mg/dL 0.50-1.40 One Over Creatinine 1.25 BUN/Creatinine Ratio 16.3 8-20 Calcium 8.5 mg/dL 8.1-9.9 Total Protein 6.2 GM/DL 6.2-8.1 Albumin 3.6 GM/DL 3.2-5.2 Globulin 2.6 GM/DL 2-4 Albumin/Globulin Ratio 1.4 1-3 Bilirubin Total 0.5 mg/dL 0.4-1.5 60 Alkaline Phosphatase 65 U/L 39-117 Alt (SGPT) 22 U/L 17-63 Ast (Sgot) 16 U/L 12-42 eGFR Non- 96.7 > 60 eGFR 124.4 > 60 61 Laboratory test finding 06/22/2011 Hemoglobin A1c 6.8 % High Less Than 6.0 62 Lipid Profile 06/22/2011 Triglyceride 156 mg/dL 40-200 (Trig/Chol/HDL) Cholesterol 195 mg/dL Less Than 200 63 High Density Lipoprotein 31 mg/dL Low 40-60 64 Cholesterol/HDL Ratio 6.29 AVERAGE High 1-4.97 Low Density Lipoprotein 133 mg/dL High Less Than 100 65 Laboratory test finding 02/23/2011 Hemoglobin A1c 6.3 5-7 Basic Metabolic Panel 12/09/2010 Sodium 138 mmol/L 135-145 Potassium 3.7 mmol/L 3.5-5.0 Chloride 102 mmol/L 101-111 Co2 (Carbon Dioxide) 27.0 mmol/L 22-32 Anion Gap 9.0 mmol/L 2-11 66 Glucose 116 mg/dL High 70-100 BUN 13 mg/dL 6-24 Creatinine 0.7 mg/dL 0.50-1.40 One Over Creatinine 1.42 BUN/Creatinine Ratio 18.6 8-20 Calcium 8.6 mg/dL 8.1-9.9 eGFR Non- 112.8 > 60 eGFR 145.1 > 60 67 Urinalysis W/Microscopic 11/10/2010 Ua Color YELLOW Yellow Appearance-Urine CLEAR Clear Specific [place]-Ur 1.024 1.010-1.030 Esterase-Urine NEGATIVE Negative Nitrite NEGATIVE Negative Ynemtugypgzj-Aa-JSM NEGATIVE Negative Protein-Urine NEGATIVE Negative PH-Urine 5.0 5-9 Blood-Urine 2+ Negative Ketones-Urine TRACE Negative Bilirubin-Ur NEGATIVE Negative Glucose-Urine 2+ Negative RBC-Urine 0-3 0-2 Epith Cells-Ur RARE None Laboratory test 11/10/2010 PSA Screening 2.21 NG/ML 0-[address] Jason's Lab Panel 10/22/2010 TSH 1.34 MIU/ML 0.34-5.60 Laboratory test 10/22/2010 Hemoglobin A1c 8.1 % High Less Than 6.0 69 finding CBC With Electronic 10/22/2010 White Blood Count 6.2 CUMM 4.8-10.8 Diff Red Cell Count 5.01 CUMM 4.6-6.2 Hemoglobin 14.8 g/dL 14.0-18.0 Hematocrit 44 % 42-52 Mean Corpuscular Volume 87 um3 80-94 Mean Corpuscular Hemoglob 30 pg 27-31 Mean Corpuscular HGB Cone 34 g/dL 32-36 Redcell Distribution WDTH 13 % 10.5-15 Platelet Count 172 CUMM 150-450 Mean Platelet Volume 8.7 um3 7.4-10.4 Gran % 66.8 % 38-83 Lymph % 20.6 % Low 25-47 Mononuclear % 8.9 % 1-9 Eosinophil % 3.1 % 0-6 Basophil % 0.6 % 0-2 Abs Lymphs 1.3 1.0-4.8 Abs Mononuclear 0.6 0-0.8 Absolute Neutrophil Count 4.1 1.5-7.7 Abs Eosinophils 0.2 0-0.6 Abs Basophils 0 0-0.2 Lipid Profile (Trig/Chol/HDL) 10/22/2010 Triglyceride 290 mg/dL High 40- 200 Cholesterol 190 mg/dL Less Than 200 70 High Density Lipoprotein 32 mg/dL Low 40-60 71 Cholesterol/HDL Ratio 5.94 AVERAGE High 1-4.97 Low Density Lipoprotein 100 mg/dL Less Than 100 72 Comp Metabolic Panel 10/22/2010 Sodium 139 mmol/L 135-145 Potassium 3.6 mmol/L 3.5-5.0 Chloride 103 mmol/L 101-111 Co2 (Carbon Dioxide) 29.0 mmol/L 22-32 Anion Gap 7.0 mmol/L 2-11 73 Glucose 183 mg/dL High 70-100 BUN 11 mg/dL 6-24 Creatinine 0.70 mg/dL 0.50-1.40 One Over Creatinine 1.40 BUN/Creatinine Ratio 15.7 8-20 Calcium 8.5 mg/dL 8.1-9.9 Total Protein 6.4 GM/DL 6.2-8.1 Albumin 3.6 GM/DL 3.2-5.2 Globulin 2.8 GM/DL 2-4 Albumin/Globulin Ratio 1.3 1-3 Bilirubin Total 0.8 mg/dL 0.4-1.5 74 Alkaline Phosphatase 75 U/L 39-117 Alt (SGPT) 29 U/L 17-63 Ast (Sgot) 20 U/L 12-42 eGFR Non- 112.8 > 60 eGFR 145.1 > 60 75 Laboratory test finding 01/10/2010 Hemoglobin A1c 6.8 5-7 CBC With Electronic Diff 10/07/2009 White Blood Count 5.8 CUMM 4.8-10.8 Red Cell Count 5.26 CUMM 4.6-6.2 Hemoglobin 15.8 g/dL 14.0-18.0 Hematocrit 45 % 42-52 Mean Corpuscular Volume 85 um3 80-94 Mean Corpuscular Hemoglob 30 pg 27-31 Mean Corpuscular HGB Cone 35 g/dL 32-36 Redcell Distribution WDTH 13 % 10.5-15 Platelet Count 184 CUMM 150-450 Mean Platelet Volume 8.2 um3 7.4-10.4 Gran % 62.6 % 38-83 Lymph % 25.1 % 25-47 Mononuclear % 8.2 % 1-9 Eosinophil % 3.3 % 0-6 Basophil % 0.8 % 0-2 Abs Lymphs 1.5 1.0-4.8 Abs Mononuclear 0.5 0-0.8 Absolute Neutrophil Count 3.6 1.5-7.7 Abs Eosinophils 0.2 0-0.6 Abs Basophils 0 0-0.2 DR Jason's Lab Panel 10/07/2009 TSH 1.37 MIU/ML 0.34-5.60 Comp Metabolic Panel 10/07/2009 Sodium 138 mmol/L 135-145 Potassium 3.6 mmol/L 3.5-5.0 Chloride 105 mmol/L 101-111 Co2 (Carbon Dioxide) 28.0 mmol/L 22-32 Anion Gap 5.0 mmol/L 2-11 76 Glucose 166 mg/dL High 70-100 77 BUN 14 mg/dL 6-24 Creatinine 0.70 mg/dL 0.50-1.40 One Over Creatinine 1.40 BUN/Creatinine Ratio 20.0 8-20 Calcium 8.5 mg/dL 8.1-9.9 78 Total Protein 6.7 GM/DL 6.2-8.1 Albumin 3.6 GM/DL 3.2-5.2 Globulin 3.1 GM/DL 2-4 Albumin/Globulin Ratio 1.2 1-3 Bilirubin Total 1.1 mg/dL 0.4-1.5 79 Alkaline Phosphatase 78 U/L 39-117 Alt (SGPT) 25 U/L 17-63 Ast (Sgot) 20 U/L 12-42 eGFR Non- 120.3 > 60 eGFR 145.6 > 60 80 Laboratory test finding 10/07/2009 Hemoglobin A1c 7.4 % High Less Than 6.0 81 Lipid Profile 10/07/2009 Triglyceride 272 mg/dL High 40-200 (Trig/Chol/HDL) Cholesterol 197 mg/dL Less Than 200 82 High Density Lipoprotein 29 mg/dL Low 40-60 83 Cholesterol/HDL Ratio 6.79 AVERAGE High 1-4.97 Low Density Lipoprotein 114 mg/dL High Less Than 100 84 Urinalysis W/Microscopic 05/08/2009 Ua Color YELLOW Yellow 85 Appearance-Urine CLEAR Clear 85 Specific [place]-Ur 1.025 1.010-1.030 85 Esterase-Urine NEGATIVE Negative 85 Nitrite NEGATIVE Negative 85 Ptmztwcnamsy-Db-IRW NEGATIVE Negative 85 Protein-Urine NEGATIVE Negative 85 PH-Urine 5.5 5-9 85 Blood-Urine NEGATIVE Negative 85 Ketones-Urine NEGATIVE Negative 85 Bilirubin-Ur NEGATIVE Negative 85 Glucose-Urine NEGATIVE Negative 85 WBC-Urine 3-5 0-5 85 RBC-Urine 0-2 0-2 85 Mucus Urine MODERATE None 85 Epith Cells-Ur RARE None 85 Bacteria-Urine TRACE None 85 Laboratory test finding 05/08/2009 PSA,Diagnostic 1.72 NG/ML 0-4 86 Laboratory test finding 02/11/2009 Hemoglobin A1c 6.6 % High Less Than 6.0 87 Glucose 151 mg/dL High 70-100 88 Lipid Profile (Trig/Chol/HDL) 02/11/2009 Triglyceride 250 mg/dL High 40- 200 Cholesterol 208 mg/dL High Less Than 200 89 High Density Lipoprotein 29 mg/dL Low 40-60 90 Cholesterol/HDL Ratio 7.17 AVERAGE High 1-4.97 Low Density Lipoprotein 129 mg/dL High Less Than 100 91 CBC With Electronic Diff 08/13/2008 White Blood Count 7.0 CUMM 4.8-10.8 Red Cell Count 5.51 CUMM 4.6-6.2 Hemoglobin 16.2 g/dL 14.0-18.0 Hematocrit 47 % 42-52 Mean Corpuscular Volume 85 um3 80-94 Mean Corpuscular Hemoglob 30 pg 27-31 Mean Corpuscular HGB Cone 35 g/dL 32-36 Redcell Distribution WDTH 13 % 10.5-15 Platelet Count 215 CUMM 150-450 Mean Platelet Volume 7.9 um3 7.4-10.4 Gran % 67.8 % 38-83 Lymph % 19.6 % Low 25-47 Mononuclear % 9.2 % High 1-9 Eosinophil % 2.9 % 0-6 Basophil % 0.5 % 0-2 Abs Lymphs 1.4 1.0-4.8 Abs Mononuclear 0.7 0-0.8 Absolute Neutrophil Count 4.8 1.5-7.7 Abs Eosinophils 0.2 0-0.6 Abs Basophils 0 0-0.2 92 Comp Metabolic Panel 08/13/2008 Sodium 138 mmol/L 135-145 Potassium 3.9 mmol/L 3.5-5.0 Chloride 102 mmol/L 101-111 Co2 (Carbon Dioxide) 29.0 mmol/L 22-32 Anion Gap 7.0 mmol/L 2-11 93 Glucose 161 mg/dL High 70-100 94 BUN 12 mg/dL 6-24 Creatinine 0.80 mg/dL 0.50-1.40 One Over Creatinine 1.20 BUN/Creatinine Ratio 15.0 8-20 Calcium 8.9 mg/dL 8.1-9.9 95 Total Protein 6.5 GM/DL 6.2-8.1 Albumin 3.6 GM/DL 3.2-5.2 Globulin 2.9 GM/DL 2-4 Albumin/Globulin Ratio 1.2 1-3 Bilirubin Total 0.9 mg/dL 0.4-1.5 Alkaline Phosphatase 83 U/L 39-117 Alt (SGPT) 31 U/L 17-63 Ast (Sgot) 21 U/L 12-42 Lipid Profile (Trig/Chol/HDL) 08/13/2008 Triglyceride 331 mg/dL High 40- 200 Cholesterol 219 mg/dL High Less Than 200 96 High Density Lipoprotein 30 mg/dL Low 40-60 97 Cholesterol/HDL Ratio 7.30 AVERAGE High 1-4.97 Low Density Lipoprotein 123 mg/dL High Less Than 100 98 Laboratory test finding 08/13/2008 TSH 0.98 MIU/ML 0.34-5.60 PSA Screening 2.14 NG/ML 0-4 99 Hemoglobin A1c 8.0 % High <6.0 100 Laboratory test 11/22/2007 Hemoglobin A1c 6.8 % High <6.0 101, 102 finding Surgical Pathology 08/02/2007 Surgical Pathology 103 --- <SEE NOTE> CBC W/ Electronic 04/25/2007 White Blood Count 6.8 CUMM 4.8-10.8 Diff Abs Basophils 0 0-0.2 Abs Eosinophils 0.2 0-0.6 Absolute Neutrophil Count 4.7 1.5-7.7 Abs Lymphs 1.3 1.0-4.8 Abs Mononuclear 0.6 0-0.8 Basophil % 0.6 % 0-2 Hematocrit 49 % 42-52 Hemoglobin 17.0 g/dL 14.0-18.0 Eosinophil % 2.4 % 0-6 Gran % 69.1 % 38-83 Lymph % 18.5 % Low 20-45 Mean Corpuscular HGB Cone 35 g/dL 32-36 Mean Corpuscular Hemoglob 30 pg 27-31 Mean Corpuscular Volume 85 um3 80-94 Mean Platelet Volume 8.4 um3 7.4-10.4 Mononuclear % 9.4 % High 1-9 Platelet Count 222 CUMM 150-450 Red Cell Count 5.72 CUMM 4.6-6.2 Redcell Distribution WDTH 13 % 10.5-15 Comp Metabolic Panel 04/25/2007 One Over Creatinine 0.90 Anion Gap 7.0 mmol/L 2-11 104 Albumin/Globulin Ratio 1.2 1-3 Albumin 3.9 GM/DL 3.2-5.2 Alkaline Phosphatase 75 U/L 39-117 Alt (SGPT) 42 U/L 17-63 Ast (Sgot) 28 U/L 12-42 BUN 14 mg/dL 6-24 Calcium 9.2 mg/dL 8.7-10.2 Chloride 102 mmol/L 101-111 Co2 (Carbon Dioxide) 33.0 mmol/L High 22-32 Globulin 3.2 GM/DL 2-4 Glucose 151 mg/dL High 70-105 Potassium 4.3 mmol/L 3.5-5.0 Sodium 142 mmol/L 135-145 Bilirubin Total 1.2 mg/dL 0.4-1.5 Total Protein 7.1 GM/DL 6.2-8.1 BUN/Creatinine Ratio 12.7 8-20 Creatinine 1.1 mg/dL 0.5-1.4 Lipid Profile 04/25/2007 Cholesterol/HDL Ratio 6.51 AVERAGE High 1-4.97 (Trig/Chol/HDL) Cholesterol 241 mg/dL High Less Than 200 105 Triglyceride 372 mg/dL High 40-200 High Density Lipoprotein 37 mg/dL Low 40-60 106 Low Density Lipoprotein 130 mg/dL High Less Than 100 107 Laboratory test finding 04/25/2007 PSA Screening 1.97 NG/ML 0-4 108 TSH 1.34 MIU/ML 0.34-5.60 Hemoglobin A1c 7.3 % High <6.0 109 1 Because ethnic data is not always readily available, this report includes an eGFR for both -Americans and non- Americans. The National Kidney Disease Education Program (NKDEP) does not endorse the use of the MDRD equation for patients that are not between the ages of 18 and 70, are , have extremes of body size, muscle mass, or nutritional status, or are non- or non-. According to the National Kidney Foundation, irrespective of diagnosis, the stage of the disease is based on the level of kidney function: Stage Description GFR(mL/min/1.73 m(2)) 1 Kidney damage with normal or decreased GFR 90 2 Kidney damage with mild decrease in GFR 60-89 3 Moderate decrease in GFR 30-59 4 Severe decrease in GFR 15-29 5 Kidney failure <15 (or dialysis) 2 Because ethnic data is not always readily available, this report includes an eGFR for both -Americans and non- Americans. The National Kidney Disease Education Program (NKDEP) does not endorse the use of the MDRD equation for patients that are not between the ages of 18 and 70, are , have extremes of body size, muscle mass, or nutritional status, or are non- or non-. According to the National Kidney Foundation, irrespective of diagnosis, the stage of the disease is based on the level of kidney function: Stage Description GFR(mL/min/1.73 m(2)) 1 Kidney damage with normal or decreased GFR 90 2 Kidney damage with mild decrease in GFR 60-89 3 Moderate decrease in GFR 30-59 4 Severe decrease in GFR 15-29 5 Kidney failure <15 (or dialysis) 3 Desirable: <150 Borderline High: 150-199 High: 200-499 Very High: >500 4 Desirable: <200 Borderline High: 200-239 High: >239 5 Low: <40 Desirable: 40-60 High: >60 6 Desirable: <100 Near Optimal: 100-129 Borderline High: 130-159 High: 160-189 Very High: >189 7 Because ethnic data is not always readily available, this report includes an eGFR for both -Americans and non- Americans. The National Kidney Disease Education Program (NKDEP) does not endorse the use of the MDRD equation for patients that are not between the ages of 18 and 70, are , have extremes of body size, muscle mass, or nutritional status, or are non- or non-. According to the National Kidney Foundation, irrespective of diagnosis, the stage of the disease is based on the level of kidney function: Stage Description GFR(mL/min/1.73 m(2)) 1 Kidney damage with normal or decreased GFR 90 2 Kidney damage with mild decrease in GFR 60-89 3 Moderate decrease in GFR 30-59 4 Severe decrease in GFR 15-29 5 Kidney failure <15 (or dialysis) 8 Desirable <150 Borderline high 150-199 High 200-499 Very High >500 9 Desirable <200 Borderline high 200-239 High >239 10 Low <40 Desirable: 40-60 High: >60 11 Desirable: <100 mg/dL Near Optimal: 100-129 mg/dL Borderline High: 130-159 mg/dL High: 160-189 mg/dL Very High: >189 mg/dL 12 [id number] Unable to calculate due to low microalbumin 14 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: [id number] VINHNOEz ALCAZAR 15 SEE RESULT BELOW Name: CHAGO PEREZ : [address]: William Jason III, MD Acct: [id number] Unit: [id number] AGE: 70 Location: [facility] Re04/02/16 SEX: M Status: REG REF SPEC: [id number] BIANCA: 04/02/16-[address]: William Jason III, MD REQ: [id number] RECD: 04/02/16 STATUS: COMP _ SOURCE: [facility]: ORDERED: Flu A B Request COMMENTS: [id number] Procedure Result Reported Site Rapid Influenza A B Request Final 04/02/16- 191 ML Specimen received for Influenza A/B Molecular testing * ML - MAIN LAB ([facility]) . END OF REPORT * ML=Testing performed at Main Lab DEPARTMENT OF PATHOLOGY, [address] [place] [address] Garland Aguilera M.D. Director [facility] # [id number] 16 SEE RESULT BELOW Name: CHAGO PEREZ : [address]: William Jason III, MD Acct: [id number] Unit: [id number] AGE: 70 Location: [facility] Re04/02/16 SEX: M Status: REG REF SPEC: [id number] BIANCA: 04/02/16-1333 [facility] DR: William Jason III, MD REQ: [id number] RECD: 04/02/16 STATUS: COMP _ SOURCE: URINE SPDES: ORDERED: Urine Culture COMMENTS: [id number] Urine Source: Random Procedure Result Reported Site Urine Culture Final 04/03/16- 1607 ML Few Enterobacteriacae; possible contamination. * ML - MAIN LAB ([facility]) . END OF REPORT * ML=Testing performed at Main Lab DEPARTMENT OF PATHOLOGY, [address] [place] [address] Garland Aguilera M.D. Director [facility] # [id number] 17 Therapeutic target for the treatment of diabetes Mellitus patients is <7% HBA1C, and in selective patients <6.0%.Please refer to [place] [employer] Association Diabetic care guidelines for further information. 18 Desirable <150 Borderline high 150-199 High 200-499 Very High >500 19 Desirable <200 Borderline high 200-239 High >239 20 Low <40 Desirable: 40-60 High: >60 21 Desirable: <100 mg/dL Near Optimal: 100-129 mg/dL Borderline High: 130-159 mg/dL High: 160-189 mg/dL Very High: >189 mg/dL 22 Because ethnic data is not always readily available, this report includes an eGFR for both -Americans and non- Americans. The National Kidney Disease Education Program (NKDEP) does not endorse the use of the MDRD equation for patients that are not between the ages of 18 and 70, are , have extremes of body size, muscle mass, or nutritional status, or are non- or non-. According to the National Kidney Foundation, irrespective of diagnosis, the stage of the disease is based on the level of kidney function: Stage Description GFR(mL/min/1.73 m(2)) 1 Kidney damage with normal or decreased GFR 90 2 Kidney damage with mild decrease in GFR 60-89 3 Moderate decrease in GFR 30-59 4 Severe decrease in GFR 15-29 5 Kidney failure <15 (or dialysis) 23 Serum levels of PSA measured using the [employer] DisplayLink DXI Hybritech immunoassay should not be interpreted as absolute evidence of the presence or absence of disease. The PSA value should be used in conjunction with other pertinent clinical diagnostic procedures. The values obtained with different assay methods or kits cannot be used interchangeably. 24 [facility] Severe Sepsis and Septic Shock Management Bundle Measure requires all lactic acids initially measuring >2.0mmol/L be repeated. 25 Because ethnic data is not always readily available, this report includes an eGFR for both -Americans and non- Americans. The National Kidney Disease Education Program (NKDEP) does not endorse the use of the MDRD equation for patients that are not between the ages of 18 and 70, are , have extremes of body size, muscle mass, or nutritional status, or are non- or non-. According to the National Kidney Foundation, irrespective of diagnosis, the stage of the disease is based on the level of kidney function: Stage Description GFR(mL/min/1.73 m(2)) 1 Kidney damage with normal or decreased GFR 90 2 Kidney damage with mild decrease in GFR 60-89 3 Moderate decrease in GFR 30-59 4 Severe decrease in GFR 15-29 5 Kidney failure <15 (or dialysis) 26 Acute inflammation: >10.00 27 FASTING PT TO DO LABS AT [address] [place] [address] 28 Because ethnic data is not always readily available, this report includes an eGFR for both -Americans and non- Americans. The National Kidney Disease Education Program (NKDEP) does not endorse the use of the MDRD equation for patients that are not between the ages of 18 and 70, are , have extremes of body size, muscle mass, or nutritional status, or are non- or non-. According to the National Kidney Foundation, irrespective of diagnosis, the stage of the disease is based on the level of kidney function: Stage Description GFR(mL/min/1.73 m(2)) 1 Kidney damage with normal or decreased GFR 90 2 Kidney damage with mild decrease in GFR 60-89 3 Moderate decrease in GFR 30-59 4 Severe decrease in GFR 15-29 5 Kidney failure <15 (or dialysis) 29 RUN DATE: 07/05/14 [facility] LAB LIVE PAGE 1 RUN TIME: [address] [place] [id number] Specimen Inquiry Name: CHAGO PEREZ Nicolette : [address]: William Jason III, MD Acct: [id number] Unit: [id number] AGE: 68 Location: [facility] Re07/02/14 SEX: M Status: REG REF SPEC: [id number] BIANCA: 07/02/14-[address]: Dudley Newton NP REQ: [id number] RECD: 07/02/140699 STATUS: COMP _ SOURCE: URINE SPDESC: ORDERED: Urine Culture QUERIES: Provider Requisition # [id number] Procedure Result Verified Site Urine Culture Final 07/05/14- 0906 ML Organism 1 ENTEROCOCCUS SPECIES GP D Metz Count 10-25,000 (Moderate) CFU/ML Organism 2 STREP GROUP B Metz Count 10-25,000 (Moderate) CFU/ML Susceptibility testing of penicillins and other B-lactams approved by FDA for treatment of Streptococcus pyogenes (Group A Strep) and Streptococcus agalactiae (Group B Strep) is not necessary for clinical purposes and need not be done routinely, since as with vancomycin, resistant strains have not been recognized. (CLSI A518-L47;p.66) Positive isolates will be saved for one week. Please call the Microbiology Laboratory if further susceptibility testing is needed. 1. ENTEROCOCCUS SPECIES GP D M.I.C. RX --------- ------ Ampicillin <=2 S Penicillin 2 S Ciprofloxacin <=0.5 S Gentamicin High Level S Levofloxacin 1 S Linezolid 2 S Nitrofurantoin <=16 S * Quinupristin/Dalfopristin 4 R CONTINUED ON NEXT PAGE * ML=Testing performed at Main Lab DEPARTMENT OF PATHOLOGY, [facility] [employer] [place], [place] [address] Garland Aguilera M.D. Director [facility] # [id number] RUN DATE: 07/05/14 [facility] LAB LIVE PAGE 2 RUN TIME: 906 [facility] [employer] [place], [place] [address] Specimen Inquiry Patient: CHAGO PEREZ [id number] (Continued) Specimen: [id number] Collected: 07/02/14 Received: 07/02/14 (Continued) Procedure Result Verified Site Urine Culture Final (continued) 07/05/14905 1. ENTEROCOCCUS SPECIES GP D (continued) DebraCMike RX --------- ------ * Streptomycin High Level S Tetracycline >=16 R Tigecycline <=0.12 S Vancomycin 2 S Imipenem-Deduced S * Ampicillin/Sulbactam-Deduced S * These antibiotics are not available in the [facility] Formulary Contact the Microbiology Department for any additional antibiotic reporting. * ML - [facility] ([facility]) . Garland Noyola M.D. END OF REPORT * ML=Testing performed at Main Lab DEPARTMENT OF PATHOLOGY, [address] [place] [address] Garland Aguilera M.D. Director CLIA # [id number] FASTING 10 HOUR 1541.FASTING 10 HOUR 31 ADDITIONAL INFORMATION Testing performed by Equilibrium Dialysis. 32 ADDITIONAL INFORMATION Testing performed by Liquid Chromatography-Tandem Mass Spectrometry (LC-MS/MS). Test Performed by: [address] [address] Neurology Hospitalist: Carlton Lugo II, M.D., Ph.D. 33 Desirable <150 Borderline high 150-199 High 200-499 Very High >500 34 Desirable <200 Borderline high 200-239 High >239 35 Low <40 Desirable: 40-60 High: >60 36 Desirable: <100 mg/dL Near Optimal: 100-129 mg/dL Borderline High: 130-159 mg/dL High: 160-189 mg/dL Very High: >189 mg/dL 37 Because ethnic data is not always readily available, this report includes an eGFR for both -Americans and non- Americans. The National Kidney Disease Education Program (NKDEP) does not endorse the use of the MDRD equation for patients that are not between the ages of 18 and 70, are , have extremes of body size, muscle mass, or nutritional status, or are non- or non-. According to the National Kidney Foundation, irrespective of diagnosis, the stage of the disease is based on the level of kidney function: Stage Description GFR(mL/min/1.73 m(2)) 1 Kidney damage with normal or decreased GFR 90 2 Kidney damage with mild decrease in GFR 60-89 3 Moderate decrease in GFR 30-59 4 Severe decrease in GFR 15-29 5 Kidney failure <15 (or dialysis) 38 Therapeutic target for the treatment of diabetes Mellitus patients is <7% HBA1C, and in selective patients <6.0%.Please refer to [place] [employer] Diabetic care guidelines for further information. 39 Serum levels of PSA measured using the [employer] Display[employer] DXI Hybritech immunoassay should not be interpreted as absolute evidence of the presence or absence of disease. The PSA value should be used in conjunction with other pertinent clinical diagnostic procedures. The values obtained with different assay methods or kits cannot be used interchangeably. 40 Testing performed by [facility]. 41 Testing performed by Liquid Chromatography-Tandem Mass Spectrometry (LC-MS/MS). Test Performed by: [place] [address] Neurology Hospitalist: Leonidas Stock III, M.D. 42 Microalbuminuria in a random sample is defined as: Microalbumin/Creatinine ratio of 30-299 ug/mg. 43 Desirable <150 Borderline high 150-199 High 200-499 Very High >500 44 Desirable <200 Borderline high 200-239 High >239 45 Low <40 Desirable: 40-60 High: >60 46 Desirable <100 Near Optimal 100-129 Borderline high 130-159 High 160-189 Very High >189 47 Because ethnic data is not always readily available, this report includes an eGFR for both -Americans and non- Americans. The National Kidney Disease Education Program (NKDEP) does not endorse the use of the MDRD equation for patients that are not between the ages of 18 and 70, are , have extremes of body size, muscle mass, or nutritional status, or are non- or non-. According to the National Kidney Foundation, irrespective of diagnosis, the stage of the disease is based on the level of kidney function: Stage Description GFR(mL/min/1.73 m(2)) 1 Kidney damage with normal or decreased GFR 90 2 Kidney damage with mild decrease in GFR 60-89 3 Moderate decrease in GFR 30-59 4 Severe decrease in GFR 15-29 5 Kidney failure <15 (or dialysis) 48 Therapeutic target for the treatment of diabetes Mellitus patients is <7% HBA1C, and in selective patients <6.0%.Please refer to [place] [employer] Association Diabetic care guidelines for further information. 49 Because ethnic data is not always readily available, this report includes an eGFR for both -Americans and non- Americans. The National Kidney Disease Education Program (NKDEP) does not endorse the use of the MDRD equation for patients that are not between the ages of 18 and 70, are , have extremes of body size, muscle mass, or nutritional status, or are non- or non-. According to the National Kidney Foundation, irrespective of diagnosis, the stage of the disease is based on the level of kidney function: Stage Description GFR(mL/min/1.73 m(2)) 1 Kidney damage with normal or decreased GFR 90 2 Kidney damage with mild decrease in GFR 60-89 3 Moderate decrease in GFR 30-59 4 Severe decrease in GFR 15-29 5 Kidney failure <15 (or dialysis) 50 RUN DATE: 08/03/12 [facility] LAB LIVE PAGE 1 RUN TIME: [address] [place] [id number] Specimen Inquiry Name: CHAGO PEREZ : [address]: Kristian Maynard MD Acct: [id number] Unit: [id number] AGE: 66 Location: [facility] Re08/02/12 SEX: M Status: REG REF SPEC: [id number] BIANCA: 08/02/12- SUBM DR: Kristian Maynard MD REQ: [id number] RECD: 08/02/12 STATUS: JOAO GARCIAS DR: William Jason III, MD _ ORDERED: LEVEL IV/2 FINAL DIAGNOSIS 1. Colon, ascending, biopsy: A. Adenomatous polyp. B. No high grade dysplasia identified. 2. Colon, 30 cm., biopsy: A. Tubular adenoma. B. No high grade dysplasia or malignancy. CLINICAL HISTORY Personal history of colon polyps; patient denies any GI symptoms at present POST-OPERATIVE DIAGNOSIS Large flat colon polyp, tattoo and biopsy, at 30 cm. biopsied GROSS DESCRIPTION 1. The specimen is received in formalin labeled Chago Perez, Biopsy of Ascending Colon Polyp, and consists of two rodriguez, soft tissue fragments measuring 0.6 x 0.3 x 0.2 cm. Submitted entirely, one cassette. 2. The specimen is received in formalin labeled Chago FMike Perez, Biopsy Colon Polyp at 30 cm., and consists of a rodriguez, soft tissue fragment measuring 0.3 x 0.3 x 0.2 cm. Submitted entirely, one cassette. Signed (signature on file) Garland Aguilera MD 1600 END OF REPORT * ML=Testing performed at Main Lab DEPARTMENT OF PATHOLOGY, [address] [place] [address] Garland Aguilera M.D. Director [facility] Permit #[id number] HDL Interpretation: Undesirable: High Risk: Less than 40 MG/DL Desirable: Low Risk: Greater than 60 MG/DL 52 LDL Interpretation: Low Risk Optimal Level: LDL Less than 100 MG/DL Near or Above Optimal: LDL 100-129 MG/DL Borderline High Risk: LDL 130-159 MG/DL High Risk: LDL 160-189 MG/DL Very High Risk: LDL Greater than 189 MG/DL 53 Because ethnic data is not always readily available, this report includes an eGFR for both -Americans and non- Americans. The National Kidney Disease Education Program (NKDEP) does not endorse the use of the MDRD equation for patients that are not between the ages of 18 and 70, are , have extremes of body size, muscle mass, or nutritional status, or are non- or non-. According to the National Kidney Foundation, irrespective of diagnosis, the stage of the disease is based on the level of kidney function: Stage Description GFR(mL/min/1.73 m(2)) 1 Kidney damage with normal or decreased GFR 90 2 Kidney damage with mild decrease in GFR 60-89 3 Moderate decrease in GFR 30-59 4 Severe decrease in GFR 15-29 5 Kidney failure <15 (or dialysis) 54 Therapeutic target for the treatment of diabetes Mellitus patients is <7% HBA1C, and in selective patients <6.0%.Please refer to [place] Diabetes Association Diabetic care guidelines for further information. 55 CHOLESTEROL INTERPRETATION: Desirable: Less than 200 MG/DL Borderline-High Risk: 200-239 MG/DL High-Risk: 240 MG/DL and over 56 HDL INTERPRETATION: Undesirable: High Risk: Less than 40 MG/DL Desirable: Low Risk: Greater than 60 MG/DL 57 LDL INTERPRETATION: Low Risk Optimal Level: LDL Less than 100 MG/DL Near or Above Optimal: LDL 100-129 MG/DL Borderline High Risk: LDL 130-159 MG/DL High Risk: LDL 160-189 MG/DL Very High Risk: LDL Greater than 189 MG/DL 58 MICROALBUMINURIA IN A RANDOM SAMPLE IS DEFINED : MICROALBUMIN/CREATININE RATIO OF 30-299 ug/mg. . 59 Anion gap measurement may be of limited value in the presence of any alkalosis, especially in a combined acid base disorder. . 60 A metabolite of Naproxen, O-desmethylnaproxen, has been shown to interfere with the [place] method for measuring total bilirubin. Samples from patients who have taken Naproxen have shown spurious elevation in total bilirubin levels. 61 Because ethnic data is not always readily available, this report includes an eGFR for both -Americans and non- Americans. The National Kidney Disease Education Program (NKDEP) does not endorse the use of the MDRD equation for patients that are not between the ages of 18 and 70, are , have extremes of body size, muscle mass, or nutritional status, or are non- or non-. According to the National Kidney Foundation, irrespective of diagnosis, the stage of the disease is based on the level of kidney function: Stage Description GFR(mL/min/1.73 m(2)) 1 Kidney damage with normal or decreased GFR 90 2 Kidney damage with mild decrease in GFR 60-89 3 Moderate decrease in GFR 30-59 4 Severe decrease in GFR 15-29 5 Kidney failure <15 (or dialysis) 62 THERAPEUTIC TARGET FOR THE TREATMENT OF DIABETES MELLITUS PATIENTS IS <7% HBA1C, AND IN SELECTIVE PATIENTS <6.0%. PLEASE REFER TO [place] [employer]OC[employer]ATION DIABETIC CARE GUIDELINES FOR FURTHER INFORMATION. 63 CHOLESTEROL INTERPRETATION: Desirable: Less than 200 MG/DL Borderline-High Risk: 200-239 MG/DL High-Risk: 240 MG/DL and over 64 HDL INTERPRETATION: Undesirable: High Risk: Less than 40 MG/DL Desirable: Low Risk: Greater than 60 MG/DL 65 LDL INTERPRETATION: Low Risk Optimal Level: LDL Less than 100 MG/DL Near or Above Optimal: LDL 100-129 MG/DL Borderline High Risk: LDL 130-159 MG/DL High Risk: LDL 160-189 MG/DL Very High Risk: LDL Greater than 189 MG/DL 66 Anion gap measurement may be of limited value in the presence of any alkalosis, especially in a combined acid base disorder. . 67 Because ethnic data is not always readily available, this report includes an eGFR for both -Americans and non- Americans. The National Kidney Disease Education Program (NKDEP) does not endorse the use of the MDRD equation for patients that are not between the ages of 18 and 70, are , have extremes of body size, muscle mass, or nutritional status, or are non- or non-. According to the National Kidney Foundation, irrespective of diagnosis, the stage of the disease is based on the level of kidney function: Stage Description GFR(mL/min/1.73 m(2)) 1 Kidney damage with normal or decreased GFR 90 2 Kidney damage with mild decrease in GFR 60-89 3 Moderate decrease in GFR 30-59 4 Severe decrease in GFR 15-29 5 Kidney failure <15 (or dialysis) 68 * SERUM LEVELS OF PSA MEASURED USING THE [employer] ACCESS HYBRITECH IMMUNOASSAY SHOULD NOT BE INTERPRETED ABSOLUTE EVIDENCE OF THE PRESENCE OR ABSENCE OF DISEASE. THE PSA VALUE SHOULD BE USED IN CONJUNCTION WITH OTHER PERTINENT CLINICAL DIAGNOSTIC PROCEDURES. 69 THERAPEUTIC TARGET FOR THE TREATMENT OF DIABETES MELLITUS PATIENTS IS <7% HBA1C, AND IN SELECTIVE PATIENTS <6.0%. PLEASE REFER TO [place] [employer]OC[employer]ATION DIABETIC CARE GUIDELINES FOR FURTHER INFORMATION. 70 CHOLESTEROL INTERPRETATION: Desirable: Less than 200 MG/DL Borderline-High Risk: 200-239 MG/DL High-Risk: 240 MG/DL and over 71 HDL INTERPRETATION: Undesirable: High Risk: Less than 40 MG/DL Desirable: Low Risk: Greater than 60 MG/DL 72 LDL INTERPRETATION: Low Risk Optimal Level: LDL Less than 100 MG/DL Near or Above Optimal: LDL 100-129 MG/DL Borderline High Risk: LDL 130-159 MG/DL High Risk: LDL 160-189 MG/DL Very High Risk: LDL Greater than 189 MG/DL 73 Anion gap measurement may be of limited value in the presence of any alkalosis, especially in a combined acid base disorder. . 74 A metabolite of Naproxen, O-desmethylnaproxen, has been shown to interfere with the [place] method for measuring total bilirubin. Samples from patients who have taken Naproxen have shown spurious elevation in total bilirubin levels. 75 Because ethnic data is not always readily available, this report includes an eGFR for both -Americans and non- Americans. The National Kidney Disease Education Program (NKDEP) does not endorse the use of the MDRD equation for patients that are not between the ages of 18 and 70, are , have extremes of body size, muscle mass, or nutritional status, or are non- or non-. According to the National Kidney Foundation, irrespective of diagnosis, the stage of the disease is based on the level of kidney function: Stage Description GFR(mL/min/1.73 m(2)) 1 Kidney damage with normal or decreased GFR 90 2 Kidney damage with mild decrease in GFR 60-89 3 Moderate decrease in GFR 30-59 4 Severe decrease in GFR 15-29 5 Kidney failure <15 (or dialysis) 76 Anion gap measurement may be of limited value in the presence of any alkalosis, especially in a combined acid base disorder. . 77 Note change in reference range as of 12/08/07. The change was based on recommendations from the [place] Diabetes Association. 78 Please note change in reference range effective 07 . 79 A metabolite of Naproxen, O-desmethylnaproxen, has been shown to interfere with the Jendrassik-[place] method for measuring total bilirubin. Samples from patients who have taken Naproxen have shown spurious elevation in total bilirubin levels. 80 Because ethnic data is not always readily available, this report includes an eGFR for both -Americans and non- Americans. The National Kidney Disease Education Program (NKDEP) does not endorse the use of the MDRD equation for patients that are not between the ages of 18 and 70, are , have extremes of body size, muscle mass, or nutritional status, or are non- or non-. According to the National Kidney Foundation, irrespective of diagnosis, the stage of the disease is based on the level of kidney function: Stage Description GFR(mL/min/1.73 m(2)) 1 Kidney damage with normal or decreased GFR 90 2 Kidney damage with mild decrease in GFR 60-89 3 Moderate decrease in GFR 30-59 4 Severe decrease in GFR 15-29 5 Kidney failure <15 (or dialysis) 81 THERAPEUTIC TARGET FOR THE TREATMENT OF DIABETES MELLITUS PATIENTS IS <7% HBA1C, AND IN SELECTIVE PATIENTS <6.0%. PLEASE REFER TO [place] [employer]OC[employer]ATION DIABETIC CARE GUIDELINES FOR FURTHER INFORMATION. 82 CHOLESTEROL INTERPRETATION: Desirable: Less than 200 MG/DL Borderline-High Risk: 200-239 MG/DL High-Risk: 240 MG/DL and over 83 HDL INTERPRETATION: Undesirable: High Risk: Less than 40 MG/DL Desirable: Low Risk: Greater than 60 MG/DL 84 LDL INTERPRETATION: Low Risk Optimal Level: LDL Less than 100 MG/DL Near or Above Optimal: LDL 100-129 MG/DL Borderline High Risk: LDL 130-159 MG/DL High Risk: LDL 160-189 MG/DL Very High Risk: LDL Greater than 189 MG/DL 85 DO C S IF POSITIVE 86 * SERUM LEVELS OF PSA MEASURED USING THE [employer] ACCESS HYBRITECH IMMUNOASSAY SHOULD NOT BE INTERPRETED ABSOLUTE EVIDENCE OF THE PRESENCE OR ABSENCE OF DISEASE. THE PSA VALUE SHOULD BE USED IN CONJUNCTION WITH OTHER PERTINENT CLINICAL DIAGNOSTIC PROCEDURES. 87 THERAPEUTIC TARGET FOR THE TREATMENT OF DIABETES MELLITUS PATIENTS IS <7% HBA1C, AND IN SELECTIVE PATIENTS <6.0%. PLEASE REFER TO [place] [employer]OC[employer] DIABETIC CARE GUIDELINES FOR FURTHER INFORMATION. 88 Note change in reference range as of 12/08/07. The change was based on recommendations from the [place] Diabetes [employer]. 89 CHOLESTEROL INTERPRETATION: Desirable: Less than 200 MG/DL Borderline-High Risk: 200-239 MG/DL High-Risk: 240 MG/DL and over 90 HDL INTERPRETATION: Undesirable: High Risk: Less than 40 MG/DL Desirable: Low Risk: Greater than 60 MG/DL 91 LDL INTERPRETATION: Low Risk Optimal Level: LDL Less than 100 MG/DL Near or Above Optimal: LDL 100-129 MG/DL Borderline High Risk: LDL 130-159 MG/DL High Risk: LDL 160-189 MG/DL Very High Risk: LDL Greater than 189 MG/DL 92 Lymphopenia % 93 Anion gap measurement may be of limited value in the presence of any alkalosis, especially in a combined acid base disorder. . 94 Note change in reference range as of 12/08/07. The change was based on recommendations from the [place] [employer]. 95 Please note change in reference range effective 07 . 96 CHOLESTEROL INTERPRETATION: Desirable: Less than 200 MG/DL Borderline-High Risk: 200-239 MG/DL High-Risk: 240 MG/DL and over 97 HDL INTERPRETATION: Undesirable: High Risk: Less than 40 MG/DL Desirable: Low Risk: Greater than 60 MG/DL 98 LDL INTERPRETATION: Low Risk Optimal Level: LDL Less than 100 MG/DL Near or Above Optimal: LDL 100-129 MG/DL Borderline High Risk: LDL 130-159 MG/DL High Risk: LDL 160-189 MG/DL Very High Risk: LDL Greater than 189 MG/DL 99 * SERUM LEVELS OF PSA MEASURED USING THE [employer] ACCESS HYBRITECH IMMUNOASSAY SHOULD NOT BE INTERPRETED ABSOLUTE EVIDENCE OF THE PRESENCE OR ABSENCE OF DISEASE. THE PSA VALUE SHOULD BE USED IN CONJUNCTION WITH OTHER PERTINENT CLINICAL DIAGNOSTIC PROCEDURES. 100 THERAPEUTIC TARGET FOR THE TREATMENT OF DIABETES MELLITUS PATIENTS IS <7% HBA1C, AND IN SELECTIVE PATIENTS <6.0%. PLEASE REFER TO [place] [employer] DIABETIC CARE GUIDELINES FOR FURTHER INFORMATION. 101 PATIENT MAY HAVE RESULTS PER DOCTOR'S AUTHORIZATION. Questions regarding this report should be directed to your doctor. 102 THERAPEUTIC TARGET FOR THE TREATMENT OF DIABETES MELLITUS PATIENTS IS <7% HBA1C, AND IN SELECTIVE PATIENTS <6.0%. PLEASE REFER TO [place] [employer]ATION DIABETIC CARE GUIDELINES FOR FURTHER INFORMATION. 103 ----- RUN DATE: 08/04/07 [facility] NMI LIVE PAGE 1 RUN TIME: 1414 Specimen Inquiry RUN USER: INTERFACE -- Name: CHAGO PEREZ Accelizabeth#: [id number] Status: REG REF Re08/02/07 Age/Sex: 61/M Unit#: [id number] Location: [facility] : 44 -- Specimen: [id number] SOUT Spec Date: 08/02/07 Ramya Denton: Kristian turner MD Spec Type: SURGICAL P Received: 08/03/0797 Copies to: William Jason III, MD SPECIMEN 1) BIOPSY COLON POLYP AT 65 CM. 2) BIOPSY COLON POLYP AT 35 CM. HISTORY CLINICAL INFORMATION: Patient with history of polyps (2003) and positive family history of colon cancer GROSS DESCRIPTION 1) The specimen is received in formalin labelled Chago F. [place], Biopsy Colon Polyp at 65 cm., and consists of a rodriguez, soft tissue fragment measuring 0.6 x 0.2 x 0.2 cm. Submitted entirely, one cassette. 2) The specimen is received in formalin labelled Chago F. [place], Biopsy Colon Polyp at 35 cm., and consists of two, rodriguez, soft tissue fragments measuring 0.5 x 0.5 x 0.2 cm. in aggregate. Submitted entirely, one cassette. DIAGNOSIS 1) Colon, 65 cm., biopsy - Hyperplastic polyp. 2) Colon, 35 cm., biopsy - Hyperplastic polyp. Signed Electronically by: GARLAND AGUILERA MD 08/04/07 1414 -- -- DEPARTMENT OF PATHOLOGY, [address] [place] [address] [facility] Permit #[id number] Garland Aguilera M.D. Director of Laboratories -- 104 Anion gap measurement may be of limited value in the presence of any alkalosis, especially in a combined acid base disorder. . 105 Classification: High . 106 Classification: Low . 107 CALCULATED LDL APPROXIMATES THE VALUE OF A DIRECT LDL MEASUREMENT. Classification: Borderline High . 108 * SERUM LEVELS OF PSA MEASURED USING THE [employer] ACCESS HYBRITECH IMMUNOASSAY SHOULD NOT BE INTERPRETED ABSOLUTE EVIDENCE OF THE PRESENCE OR ABSENCE OF DISEASE. THE PSA VALUE SHOULD BE USED IN CONJUNCTION WITH OTHER PERTINENT CLINICAL DIAGNOSTIC PROCEDURES. 109 THERAPEUTIC TARGET FOR THE TREATMENT OF DIABETES MELLITUS PATIENTS IS <7% HBA1C, AND IN SELECTIVE PATIENTS <6.0%. PLEASE REFER TO [place] [employer]IATION DIABETIC CARE GUIDELINES FOR FURTHER INFORMATION. Procedures Date CPT Code Description Status 03/03/2017 Diabetic Retinal Eye Exam Completed 09/30/2015 Diabetic Retinal Eye Exam Completed 07/23/2015 Colonoscopy Completed 12/31/2014 Diabetic Retinal Eye Exam Completed 12/13/2012 Diabetic Retinal Eye Exam Completed 08/02/2012 Colonoscopy Completed 08/16/2008 21714 EKG Tracing & Interpretation Completed 08/02/2007 Colonoscopy Completed 07/01/2004 Colonoscopy Completed Encounters Type Date Location Provider CPT E/M Dx Office Visit 02/23/2017 11:40a [facility] Internal Medicine William Jason, 25778 E11.[place] M.D. I10 G47.33 E78.2 Office Visit 12/09/2016 2:45p [facility] [address] G47.33 [facility] J98.4 E66.01 Z68.41 Office Visit 08/25/2016 9:00a [facility] Internal Medicine William Jason, 00625 E11.9 - Mayank Moser I10 E78.2 Office Visit 06/02/2016 2:00p [place] [address] J98.4 [facility] G47.33 E66.01 Z68.41 Office Visit 05/27/2016 10:20a [facility] Internal Medicine William Jason, 17816 E11.9 - Arrowrobert Moser I10 Office Visit 04/02/2016 1:00p [facility] Internal Medicine - William Jason, 11838 R05 Mayank Moser R35.0 Office Visit 02/25/2016 10:40a [facility] Internal Medicine William Jason, 32833 Z00.00 - Arrowrobert Moser E11.9 I10 E78.2 G47.30 Z23 Office Visit 11/25/2015 11:40a [facility] Internal Medicine - Dudley [place], JAMES 88780 R21 Fischer Office Visit 08/20/2015 2:00p [facility] Internal Medicine - William Jason, 34688 E11.9 Torrey Moser I10 E78.2 G47.30 Office Visit 06/21/2015 11:00a [facility] Internal [place], 06879 J10.89 Medicine - Torrey Moser R53.83 R50.9 Office Visit 06/17/2015 12:10p [facility] Internal Medicine Renetta Nolasco, 95982 J20.9 - Torrey Moser Office Visit 06/05/2015 9:40a [facility] Internal Medicine William Jason, 71885 R10.813 - Torrey Moser N40.0 Office Visit 10/15/2014 9:20a [facility] Internal Medicine William Jason, 59500 250.00 - Torrey Moser Office Visit 07/13/2014 9:40a [facility] Internal Medicine William Jason, 99076 250.00 - Torrey Moser 401.1 780.57 V03.82 V06.1 Office Visit 07/02/2014 9:00a [facility] [place] [address] 788.41 Fischer 607.81 Office Visit 01/24/2014 10:00a [facility] Internal Medicine William Jason, 58324 257.2 - Fischer MRobyn Office Visit 07/07/2013 10:00a [facility] Internal Medicine William Jason, 43200 401.1 - Fischerniya Moser 250.00 272.2 780.57 709.9 Office Visit 05/12/2013 11:20a [facility] Internal Medicine William Jason, 38450 719.44 - Fischer M.D. Office Visit 08/15/2012 1:00p [facility] Internal Medicine William Jason, 53972 V72.81 - Fischer M.D. 211.3 250.00 401.1 272.2 780.57 Office Visit 06/23/2012 9:00a [facility] Internal Medicine William Jason, 53820 250.00 - Fischer M.D. 401.1 272.2 780.57 Office Visit 12/25/2011 9:00a [facility] Internal Medicine William Jason, 49414 250.00 - [place] M.D. 401.1 780.57 272.2 Office Visit 06/24/2011 9:00a [facility] Internal Medicine William Jason, 95804 V70.0 - [place] M.D. 250.00 401.1 780.57 272.2 709.9 Office Visit 02/23/2011 10:40a DO Not Use [facility], 83305 250.00 [place] M.D. 401.1 780.57 Office Visit 11/10/2010 1:20p DO Not Use [facility], 99888 599.70 [place] M.D. Office Visit 10/23/2010 2:20p DO Not Use [facility], 21476 250.00 [place] M.D. 401.1 780.57 Office Visit 04/24/2010 11:40a DO Not Use [facility], 19331 250.00 [place] M.D. 401.1 272.2 Office Visit 01/10/2010 9:00a DO Not Use [facility], 10670 709.9 [place] M.D. 250.00 Office Visit 05/08/2009 9:40a DO Not Use [facility], 94081 599.70 [place] M.D. Office Visit 02/13/2009 10:30a DO Not Use [facility], 11531 250.00 [place] M.D. 272.2 401.1 Office Visit 08/16/2008 9:00a [facility] 07925 250.00 [facility] V70[facility]0 [facility] Visit 11/22/2007 10:00a [facility], 39215 272.2 [facility] 401.1 V03.82 Office Visit 09/21/2007 3:00p [facility], 46190 466.0 [facility].D. Office Visit 05/24/2007 10:00a [facility], 26568 250.00 [facility] 272.2 Office Visit 04/25/2007 9:30a [facility], 68376 272.2 [facility] Future Appointment(s):12/30/2017 9:00 am - William Jason M.D. at [facility] Internal Medicine - Hyuxmfkwc70/11/2018 - William Jason M.D.E11.9 Type 2 diabetes mellitus without complicationsFollow up:3 [id number] Essential (primary ) hypertension
--- OUTSIDE RECORDS SUMMARY | 2017-10-11 13:01 | XMS REPORT ---
:1945 External Reference #:[id number] Author Organization [employer] [facility] [employer] [employer] Address [address] [place] [address] Phone [phone] Care Team Providers Name Role Phone William Jason M.D. Primary Care Physician Unavailable Payers Type Date Identification Numbers Payment Provider Subscriber Commercial Policy Number: [id number] [employer] [place] PayID: [id number] [address] [place] [address] Problems Date Description Provider Status Onset: Essential hypertension Active Onset: Type 2 diabetes mellitus Active Onset: 09/22/2017 Migraine with typical aura Evelyne Lal O.D. Active Onset: 03/03/2017 Presbyopia Eevlyne Lal O.D. 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 Amlodipine Besylate Active Tablets 10mg Unknown /0000 Losartan Potassium Active Tablets 100mg Unknown /0000 Metformin HCL Active Tablets 500mg Unknown /0000 Multi Vitamin Daily Active Tablets Unknown /0000 Bydureon Bcise Active Auij 2mg/0.85M Inject / L The Contents Of 1 Syringe Under The Skin Once Weekly Simvastatin Hx Tablets 5mg / - 02/26 Victoza Hx Solution 18mg/3ML Unknown / Pen-Injec - t 02/26 Hydrochlorothiazide Hx Tablets 25mg - 09/28 Januvia Hx Tablets 100mg 1 tab po daily - 09/21 Results Description No Information Procedures Date CPT Code Description Status 03/03/2017 48266 Determination Of Refractive State Completed 03/03/2017 69125 Est Patient Comprehensive Exam Completed 09/30/2015 37450 New Patient Comprehensive Exam Completed Encounters Type Date Location Provider CPT E/M Dx Office Visit 10/07/2015 9:45a Delfino Parks MD, Evelyne Lal O.D. 06524 H49.22 Plan of Care 09/22/2017 - Evelyne Lal O.D.G43.109 Migraine with aura, not intractable, w/ o status migrainosusComments:Smoking can increase the risk of developing or worsening any eye related disease, as well as affect your overall health. If you are a smoker, we strongly recommend that you quit.If you are not a smoker, we strongly recommend that you do not start. You have experienced an ocular migraine. This may ormay not be associated with a headache. The visual phenomena you experience typically lasts for less than 1 hour, and should resolve completely. If this does not resolve completely or you notice any other changes to your vision, please call the office to be seen.Follow up:as scheduled
[2017-10-11 13:03] VITALS: BP 150/89
--- NOTE | 2017-10-11 14:06 | UC ---
Harry Ley Gabriel, scribed for Carlton Monteiro MD on 10/11/17 at 1325 . Skin Complaint HPI - HPI Summary HPI Summary: This patient is a 72 year old M presenting to [facility] with a chief complaint of rash on his groin due to Bydureon injections that began 8 days ago. He has been injecting the shots for 7 weeks once a week with no sx until recently. The patient rates the pain 0/10 in severity. Patient reports itching. - History of Current Complaint Chief Complaint: UCRash Time Seen by Provider: 10/11/17 13:09 Stated Complaint: RASH Hx Obtained From: Patient Onset/Duration: Lasting Days - 8, Still Present Skin Exposure Onset/Duration: Weeks Ago Timing: Constant Onset Severity: Mild Current Severity: Mild Pain Intensity: 0 Pain Scale Used: 0-10 Numeric Location: Other - groin Character: Redness Associated Signs & Symptoms: Positive: Negative - fever - Allergy/Home Medications Allergies/Adverse Reactions: Allergies Allergy/AdvReac Type Severity Reaction Status Date / Time enalaprilat [From Vasotec] Allergy Coughing Verified 10/11/17 13:04 latex Allergy Rash Verified 10/11/17 13:04 Home Medications: Home Medications Aspirin [Aspir-Low] 1 tab PO DAILY 10/11/17 [History Confirmed 10/11/17] Exenatide Microspheres [Bydureon Pen] 1 dose SQ WEEKLY 10/11/17 [History Confirmed 10/11/17] amLODIPine TAB* [Norvasc 5 mg TAB*] 1 tab PO DAILY 10/11/17 [History Confirmed 10/11/17] metFORMIN* [Glucophage 1000 MG TAB *] 1 tab PO DAILY 10/11/17 [History Confirmed 10/11/17] Review of Systems Constitutional: Negative - fever Skin: Rash - w/ itching All Other Systems Reviewed And Are Negative: Yes PMH/Surg Hx/FS Hx/Imm Hx Endocrine History: Diabetes Cardiovascular History: Hypertension - Surgical History Surgical History: Yes Surgery Procedure, Year, and Place: Arthroscopic Surgery on left knee; Growth removed from back; Nasal Surgery, 08/2012 - large colon polyp (benign) - Family History Known Family History: Positive: Hypertension, Diabetes Family History: Father, DM & CHF; Brother, colon CA - Social History Lives: With Family Alcohol Use: None Substance Use Type: None Smoking Status (MU): Former Smoker - Immunization History Most Recent Tetanus Shot: UTD Physical Exam - Summary Physical Exam Summary: General: well-appearing, no pain distress Skin: there is a erythematous rash that is 2cmx1.5cm on bilateral anterior thigh , subcutaneous firmness that is not hot to touch, no drainage. Head: normal Eyes: EOMI, SYDNEE ENT: normal Neck: supple, nontender Respiratory: CTA, breath sounds present Cardiovascular: RRR Abdomen: soft, nontender Bowel: present Musculoskeletal: normal, strength/ROM intact Neurological: sensory/motor intact, A&O x3 Psychological: affect/mood appropriate Triage Information Reviewed: Yes Vital Signs: Initial Vital Signs Temp 98.7 F 10/11/17 13:00 Pulse 80 10/11/17 13:00 Resp 18 10/11/17 13:00 BP 150/89 10/11/17 13:00 Pulse Ox 97 10/11/17 13:00 Vital Signs Reviewed: Yes Course/Dx - Course Course Of Treatment: BP noted and advised to follow up with PCP. Medications reviewed. Allergies noted. RECOMMENDED STOPPING THE INJECTION. THE SITES ARE NOT OBVIOUSLY INFECTED. RX KEFLEX IF SIGNS OF INFECTION DEVELOP. F/U PMD TO DETERMINE FUTURE DM TREATMENT. RE CHECK SOONER IF WORSE. - Diagnoses Provider Diagnoses: RASH AND SUBCUTANEOUS SWELLING AT BYETTA INJECTION SITE B/ L THIGHS. HTN Discharge - Sign-Out/Discharge Documenting (check all that apply): Discharge/Admit/Transfer - Discharge Plan Condition: Stable Disposition: HOME Prescriptions: Cephalexin CAP* [Keflex CAP*] 500 mg PO QID #40 cap Patient Education Materials: Acute Rash (ED) Referrals: William Jason MD [Primary Care Provider] - Additional Instructions: Your blood pressure was elevated during todays visit; please follow up with your primary care provider within a week for further evaluation. STOP THE BYETTA/BYDUREON. FOLLOW UP WITH YOUR DOCTOR TO DETERMINE FURTHER DIABETES TREATMENT. GET RECHECKED FOR ANY WORSENING OF YOUR CONDITION OR QUESTIONS OR CONCERNS. - Billing Disposition and Condition Condition: STABLE Disposition: Home The documentation as recorded by the Harry bueno Gabriel accurately reflects the service I personally performed and the decisions made by me, Carlton Monteiro MD.
== END 2017-10-11 13:33 | disposition home or self-care (01) ==
LOC: UCEAST 12:52
DX: R21 Rash and other nonspecific skin eruption (principal); I10 Essential (primary) hypertension; Z88.8 Allergy status to other drugs, medicaments and biological substances; Z91.040 Latex allergy status
CPT/HCPCS: 99212; G0463

== ENCOUNTER 2020-09-28 04:28 | Observation (INO) ==
[2020-09-28] MEDS ORDERED: NS 0.9% 1000 ml BAG 1,000 ML IV ONE (04:36)
[2020-09-28 05:08] LABS: ABS Basophils 0.1 10^3/ul (0-0.2); ABS Eosinophils 0.1 10^3/ul (0-0.6); ABS Lymphocytes 0.9 10^3/ul (1.0-4.8); ABS Monocytes 0.7 10^3/ul (0-0.8); Eosinophil % 0.9 %; Hematocrit 43 % (42-52); Hemoglobin 14.9 g/dL (14.0-18.0); Lymphocyte % 8.9 %; Mean Corpuscular HGB Conc 35 g/dL (31-36); Mean Corpuscular Hemoglobin 29 pg (27-31); Mean Corpuscular Volume 85 fL (80-94); Platelet Count 174 10^3/uL (150-450); Red Cell Distribution Width 14 % (10-15); White Blood Count 9.7 10^3/uL (3.5-10.8)
[2020-09-28 05:19] LABS: Activated Partial Thrombo Time 29.5 seconds (26.0-38.0); INR 1.06 (0.82-1.09)
[2020-09-28 05:26] LABS: Albumin/Globulin Ratio 1.4 (1-3); Calcium 8.4 mg/dL (8.6-10.3); EGFR African American 139.5 (>60); EGFR Non-African American 115.3 (>60); Globulin 2.8 g/dL (2-4); HDL Cholesterol 48.2 mg/dL; Potassium 3.4 mmol/L (3.5-5.0); Total Bilirubin 0.8 mg/dL (0.2-1.0); Total Protein 6.8 g/dL (6.4-8.9)
[2020-09-28 05:28] LABS: Troponin I 0.01 ng/mL (<0.03)
[2020-09-28] MEDS ORDERED: LORazepam 2 mg VIAL 1 ml IV PUSH ONE (05:59)
[2020-09-28] MEDS ORDERED: Lorazepam PYXIS KEY PRN (05:59)
[2020-09-28 06:12] LABS: Urine Appearance Clear; Urine Bilirubin Negative (Negative); Urine Blood Negative (Negative); Urine Color Yellow; Urine Glucose 2+(150 mg/dL) (Negative); Urine Ketones Trace (Negative); Urine Nitrite Negative (Negative); Urine Protein Negative (Negative); Urine Specific Gravity 1.012 (1.002-1.030); Urine Urobilinogen Negative (Negative)
[2020-09-28 06:36] LABS: C Reactive Protein 1.7 mg/L (<8.01)
[2020-09-28 06:58] LABS: PCO2 Arterial 36 mmHg (35-45); PO2 Arterial 65 mmHg (80-100)
[2020-09-28] MEDS ORDERED: Dextrose 50% Syringe 50 ml 25 GM/50 ML SYRINGE IV PUSH PRN (09:52)
[2020-09-28] MEDS: NF:Mirabegron 50 mg ER TAB (NF) PO SCH (12:52)
[2020-09-28] MEDS: CMC:SitaGLIPtin 100 mg TAB (NF) PO SCH (12:52)
[2020-09-28] MEDS ORDERED: Heparin 5000 UNITS/ML 1 mL VIAL SUBCUT SCH (14:00)
[2020-09-29] MEDS ORDERED: Perflutren Lipid Microsphere 3 ML VIAL ONE (07:07)
[2020-09-29] MEDS: NF:Mirabegron 50 mg ER TAB (NF) PO SCH (08:07)
[2020-09-29] MEDS: CMC:SitaGLIPtin 100 mg TAB (NF) PO SCH (08:07)
[2020-09-29 08:21] LABS: ABS Basophils 0.1 10^3/ul (0-0.2); ABS Eosinophils 0.1 10^3/ul (0-0.6); ABS Monocytes 0.6 10^3/ul (0-0.8); ABS Neutrophils 5.3 10^3/ul (1.5-7.7); Eosinophil % 1.7 %; Hematocrit 45 % (42-52); Hemoglobin 15.3 g/dL (14.0-18.0); Lymphocyte % 14.4 %; Mean Corpuscular HGB Conc 34 g/dL (31-36); Mean Corpuscular Hemoglobin 29 pg (27-31); Mean Corpuscular Volume 86 fL (80-94); Mean Platelet Volume 7.2 fL (7.4-10.4); Nucleated Red Blood Cells % 0.2; Platelet Count 174 10^3/uL (150-450); Red Blood Count 5.22 10^6 /uL (4.18-5.48); Red Cell Distribution Width 14 % (10-15); White Blood Count 7.2 10^3/uL (3.5-10.8)
[2020-09-29 08:33] LABS: Calcium 8.6 mg/dL (8.6-10.3); EGFR African American 120.7 (>60); EGFR Non-African American 99.7 (>60); Potassium 3.5 mmol/L (3.5-5.0)
[2020-09-29] MEDS ORDERED: Aspirin EC 81 mg TAB.EC (enteric coated) PO SCH (09:00)
[2020-09-29 11:44] VITALS: BP 146/89
== END 2020-09-29 14:24 | disposition home or self-care (01) ==
LOC: ED 04:28 → MEDTELE 04:28
PROVIDERS: ADMIT Internal Medicine; ATTEND Internal Medicine

== ENCOUNTER 2021-09-30 11:57 | Observation (INO) ==
[~2021-09-30 11:57] MED LIST: Buffered Lidocaine 1% SYRIN 1 ml INTRADERM ONE; HYDROcodone/ACETAMIN 5/325 mg TAB PO PRN; Lactated Ringers 1000 ml BAG 1,000 ML IV SCH; Metoclopramide 5 MG/ML VIAL (10 mg) IV PRN; Naloxone 0.4 mg VIAL 0.4 mg/ml 1 ml VIAL IV PRN; Ondansetron 4 mg VIAL 2 MG/ML 2 ml VIAL IV PRN; fentaNYL 100 mcg/2 ml 50 MCG/ML VIAL IV PRN
[2021-09-30] MEDS ORDERED: ceFAZolin 2 GM PREMIX 2 GM/50 ML BAG ONE (12:30)
[2021-09-30] MEDS ORDERED: Dexamethasone IV 4 MG/ML VIAL 1 ml VIAL ONE ×3 (13:28→19:36)
[2021-09-30] MEDS ORDERED: fentaNYL 100 mcg/2 ml 50 MCG/ML VIAL ONE ×3 (13:28→19:37)
[2021-09-30] MEDS ORDERED: ROPIVACAINE 5 MG/ML 30 ML BTL (0.5%) ONE (13:28)
[2021-09-30] MEDS ORDERED: Propofol 10 MG/ML 20 ML BTL ONE (13:33)
[2021-09-30] MEDS ORDERED: Rocuronium 50 mg VIAL 10 mg/ml 5 ml VIAL (50 mg) ONE (13:33)
[2021-09-30] MEDS ORDERED: Ondansetron 4 mg VIAL 2 MG/ML 2 ml VIAL ONE ×3 (13:33→19:36)
[2021-09-30] MEDS ORDERED: Midazolam 2 mg/2 ml VIAL 1 mg/ml 2 ml VIAL (2 mg) ONE (13:34)
[2021-09-30] MEDS ORDERED: fentaNYL 250 mcg/5 ml 50 MCG/ML 5 ml VIAL (250 MCG) ONE (13:34)
[2021-09-30] MEDS ORDERED: Ketamine HCL 50 mg/ml 10 ml VIAL (500 MG) ONE (15:12)
[2021-09-30] MEDS ORDERED: Ondansetron ODT 4 mg TAB 4 MG TAB PO PRN (15:34)
[2021-09-30] MEDS ORDERED: Magnesium Hydroxide LIQ 30 ML UDC PO PRN (15:34)
[2021-09-30] MEDS ORDERED: Ondansetron 4 mg VIAL 2 MG/ML 2 ml VIAL IV PRN (15:34)
[2021-09-30] MEDS ORDERED: Lactulose 30 ml UDC PO PRN (15:34)
[2021-09-30] MEDS ORDERED: Morphine 2 MG/ML SYRINGE IV PRN (15:34)
[2021-09-30] MEDS ORDERED: HYDROmorphone 0.5 MG/0.5 ML SYRINGE ONE ×2 (15:44→16:08)
[2021-09-30] MEDS ORDERED: Lactated Ringers 1000 ml BAG 1,000 ML IV SCH (16:00)
[2021-09-30] MEDS ORDERED: Lidocaine 1% 50 ML MDV VIAL ONE (16:23)
[2021-09-30] MEDS ORDERED: Metoclopramide 5 MG/ML VIAL (10 mg) ONE ×2 (18:18→19:36)
[2021-09-30] MEDS ORDERED: Dextrose 50% Syringe 50 ml 25 GM/50 ML SYRINGE IV PUSH PRN (18:39)
[2021-09-30] MEDS: fentaNYL 100 mcg/2 ml 50 MCG/ML VIAL IV PRN ×8 (18:39→20:08)
[2021-09-30] MEDS ORDERED: Prochlorperazine 5 mg/ml 2 ml VIAL (10 mg) IV ONE (21:39)
[2021-09-30] MEDS: Magnesium Hydroxide LIQ 30 ML UDC PO SCH (21:49)
[2021-09-30] MEDS: ceFAZolin 1 GM ADVAN 1 GM in NS 0.9% 50 ML 50 ML IVPB SCH (21:53)
[2021-10-01 05:40] LABS: Hematocrit 37 % (42-52); Hemoglobin 12.4 g/dL (14.0-18.0); Mean Platelet Volume 7.5 fL (7.4-10.4); Platelet Count 183 10^3/uL (150-450)
[2021-10-01 06:02] LABS: Calcium 7.9 mg/dL (8.6-10.3); Potassium 3.7 mmol/L (3.5-5.0); eGFR CKD-EPI 94.5 (>60)
[2021-10-01] MEDS: ceFAZolin 1 GM ADVAN 1 GM in NS 0.9% 50 ML 50 ML IVPB SCH ×2 (07:41→14:07)
[2021-10-01] MEDS: Magnesium Hydroxide LIQ 30 ML UDC PO SCH (08:47)
[2021-10-01] MEDS ORDERED: CMCS: SitaGLIPtin 100 mg TAB (NF) PO SCH (09:00)
[2021-10-01] MEDS ORDERED: Vitamin THERAPEUTIC TAB PO SCH (09:00)
[2021-10-01 12:22] VITALS: BP 114/75
== END 2021-10-01 15:00 | disposition home or self-care (01) ==
LOC: SSU 11:57 → OR 11:57 → EDSTATUS 14:00
PROVIDERS: ADMIT Orthopaedic Surgery Adult Reconstructive Orthopaedic Surgery; ATTEND Orthopaedic Surgery Adult Reconstructive Orthopaedic Surgery

== ENCOUNTER 2022-10-15 14:15 | Inpatient (IN) ==
[2022-10-15 16:52] LABS: ABS Basophils 0.1 10^3/uL (0.0-0.1); ABS Eosinophils 0.2 10^3/uL (0.0-0.5); ABS Lymphocytes 0.8 10^3/uL (1.0-4.8); ABS Monocytes 0.7 10^3/uL (0.0-1.1); ABS Neutrophils 5.8 10^3/uL (1.5-7.6); ABS Nucleated RBC 0.02 10^3/ul; Eosinophil % 2.5 %; Hematocrit 22.1 % (38-53); Hemoglobin 6.5 g/dL (13.2-16.3); Lymphocyte % 11.1 %; Mean Corpuscular Hemoglobin 18.9 pg (27-33); Mean Corpuscular Hgb Conc 29.3 g/dL (31-36); Mean Corpuscular Volume 64.4 fL (80-97); Mean Platelet Volume 7.7 fL (7.5-11.2); Nucleated Red Blood Cells % 0.3 /100 WBC (0.0-0.4); Platelet Count 238 10^3/uL (150-450); Red Blood Count 3.43 10^6/uL (4.06-5.63); Red Cell Distribution Width 18.3 % (12-17); White Blood Count 7.6 10^3/uL (3.6-10.2)
[2022-10-15 17:09] LABS: Albumin 3.6 g/dL (3.2-5.2); Albumin/Globulin Ratio 1.2 (1-3); Calcium 8.6 mg/dL (8.6-10.3); Creatinine, Serum 0.88 mg/dL (0.67-1.17); Potassium 3.2 mmol/L (3.5-5.0); Total Bilirubin 0.3 mg/dL (0.2-1.0); Total Protein 6.6 g/dL (6.4-8.9)
[2022-10-15] MEDS ORDERED: Pantoprazole VIAL 40 MG VIAL IV ONE (20:43)
[2022-10-15] MEDS: Pantoprazole 80 mg in NS BAG 80 MG/250 ML BAG IV SCH (21:23)
[2022-10-15] MEDS ORDERED: Lactated Ringers 1000 ml BAG 1,000 ML IV ONE (21:39)
[2022-10-15 21:51] LABS: ABS Basophils 0.1 10^3/uL (0.0-0.1); ABS Eosinophils 0.2 10^3/uL (0.0-0.5); ABS Monocytes 0.7 10^3/uL (0.0-1.1); ABS Neutrophils 5.7 10^3/uL (1.5-7.6); ABS Nucleated RBC 0.01 10^3/ul; Eosinophil % 2.5 %; Hematocrit 23.3 % (38-53); Lymphocyte % 12.8 %; Mean Corpuscular Hgb Conc 30.1 g/dL (31-36); Mean Corpuscular Volume 66.4 fL (80-97); Nucleated Red Blood Cells % 0.1 /100 WBC (0.0-0.4); Platelet Count 240 10^3/uL (150-450); Red Blood Count 3.51 10^6/uL (4.06-5.63); Red Cell Distribution Width 19.4 % (12-17); White Blood Count 7.7 10^3/uL (3.6-10.2)
[2022-10-16 02:55] LABS: Hematocrit 21.7 % (38-53); Hemoglobin 6.7 g/dL (13.2-16.3)
[2022-10-16] MEDS: Latanoprost 0.005% 2.5 ml BTL BOTH EYES SCH ×2 (03:06→20:07)
[2022-10-16] MEDS: KCL 20 MEQ/100 ML IVPREMIX 20 MEQ/100 ML BAG IV SCH ×2 (04:43→07:27)
[2022-10-16 07:08] LABS: ABS Basophils 0.1 10^3/uL (0.0-0.1); ABS Eosinophils 0.2 10^3/uL (0.0-0.5); ABS Lymphocytes 0.7 10^3/uL (1.0-4.8); ABS Monocytes 0.6 10^3/uL (0.0-1.1); ABS Neutrophils 5.3 10^3/uL (1.5-7.6); ABS Nucleated RBC 0.01 10^3/ul; Eosinophil % 2.8 %; Hematocrit 24.9 % (38-53); Hemoglobin 7.8 g/dL (13.2-16.3); Lymphocyte % 10.3 %; Mean Corpuscular Hgb Conc 31.4 g/dL (31-36); Mean Corpuscular Volume 66.7 fL (80-97); Nucleated Red Blood Cells % 0.2 /100 WBC (0.0-0.4); Platelet Count 221 10^3/uL (150-450); Red Blood Count 3.73 10^6/uL (4.06-5.63); Red Cell Distribution Width 19.3 % (12-17); White Blood Count 6.9 10^3/uL (3.6-10.2)
[2022-10-16 07:27] LABS: Calcium 8.1 mg/dL (8.6-10.3); Creatinine, Serum 0.76 mg/dL (0.67-1.17); Magnesium 1.9 mg/dL (1.9-2.7); Potassium 3.7 mmol/L (3.5-5.0)
[2022-10-16] MEDS: Pantoprazole 80 mg in NS BAG 80 MG/250 ML BAG IV SCH (09:29)
[2022-10-16] MEDS: Pantoprazole VIAL 40 MG VIAL IV SCH ×2 (11:31→20:07)
[2022-10-16 13:34] LABS: Hematocrit 24.1 % (38-53); Hemoglobin 7.3 g/dL (13.2-16.3)
[2022-10-16] MEDS ORDERED: Dextrose 50% Syringe 50 ml 25 GM/50 ML SYRINGE IV PUSH PRN (14:27)
[2022-10-16 15:55] LABS: % Iron Saturation 4 % (15-55); .Transferrin 319 mg/dL (203-362); Iron < 20 ug/dL (50-212); Total Iron Binding Capacity 447 mcg/dL (250-450); Unsaturated Iron Binding 427 ug/dL
[2022-10-16 16:14] LABS: Ferritin 14.1 ng/mL (24-336)
[2022-10-16] MEDS ORDERED: Midazolam 10 mg/10 ml VIAL 1 mg/ml 10 ml VIAL (10 mg) ONE (16:31)
[2022-10-16] MEDS ORDERED: fentaNYL 100 mcg/2 ml 50 MCG/ML VIAL ONE (16:31)
[2022-10-16 19:39] LABS: Hematocrit 27.1 % (38-53); Hemoglobin 8.1 g/dL (13.2-16.3)
[2022-10-16] MEDS ORDERED: Pantoprazole VIAL 40 MG VIAL IV SCH (21:00)
[2022-10-17 01:03] LABS: Hemoglobin 7.5 g/dL (13.2-16.3)
[2022-10-17] MEDS: Pantoprazole VIAL 40 MG VIAL IV SCH (08:03)
[2022-10-17 09:08] LABS: Hematocrit 25.6 % (38-53); Hemoglobin 7.8 g/dL (13.2-16.3); Mean Corpuscular Hemoglobin 20.1 pg (27-33); Mean Corpuscular Hgb Conc 30.5 g/dL (31-36); Mean Corpuscular Volume 66.2 fL (80-97); Mean Platelet Volume 7.7 fL (7.5-11.2); Platelet Count 241 10^3/uL (150-450); Red Blood Count 3.87 10^6/uL (4.06-5.63); Red Cell Distribution Width 19.9 % (12-17); White Blood Count 8.4 10^3/uL (3.6-10.2)
[2022-10-17 09:22] LABS: Calcium 8.3 mg/dL (8.6-10.3); Creatinine, Serum 0.78 mg/dL (0.67-1.17); Potassium 3.7 mmol/L (3.5-5.0); eGFR CKD-EPI 91.3 (>60)
[2022-10-17 13:29] VITALS: BP 122/70
== END 2022-10-17 14:50 | disposition home or self-care (01) | DRG 392 ==
LOC: EDHOLD 14:15 → ED 14:15 → SUATTDRO 21:04 → MED 23:51 → SUATTDRO 10-16 15:57
PROVIDERS: ADMIT Internal Medicine; ATTEND Internal Medicine